=== PATIENT | female | born 1945 | race African-American/Black ===

== ENCOUNTER 2020-10-14 11:55 | Inpatient (IN) | payer MEDICARE ==
[~2020-10-14] VITALS: Ht 175.3 cm; Wt 121.8 kg
[2020-10-14 12:49] VITALS: BP 173/78
[2020-10-14 13:46] LABS: BASO # 0.1 x10^3/uL (0.0-0.2); BASO % 1 % (0-3); EOS # 0.1 x10^3/uL (0.0-0.7); EOS % 2 % (0-3); HEMATOCRIT 38.2 % (36.0-47.0); HEMOGLOBIN 12.5 g/dL (12.0-15.5); LYMPH # 2.5 x10^3/uL (1.0-4.8); LYMPH % 32 % (24-48); MEAN CORPUSCULAR HEMOGLOBIN 31 pg (25-35); MEAN CORPUSCULAR HGB CONC 33 g/dL (31-37); MEAN CORPUSCULAR VOLUME 93 fL (79-100); MONO # 0.8 x10^3/uL (0.0-1.1); MONO % 11 % (0-9); NEUT # 4.3 x10^3uL (1.8-7.7); NEUT % 55 % (31-73); PLATELET COUNT 188 x10^3/uL (140-400); RED BLOOD COUNT 4.11 x10^6/uL (3.50-5.40); RED CELL DISTRIBUTION WIDTH 15.5 % (11.5-14.5); WHITE BLOOD COUNT 7.7 x10^3/uL (4.0-11.0)
[2020-10-14 13:59] LABS: ALBUMIN 2.8 g/dL (3.4-5.0); ALBUMIN/GLOBULIN RATIO 0.7 (1.0-1.7); GFR 65.8; POTASSIUM 3.9 mmol/L (3.5-5.1); TOTAL BILIRUBIN 0.3 mg/dL (0.2-1.0); TOTAL PROTEIN 6.9 g/dL (6.4-8.2)
[2020-10-14 14:42] LABS: CALCIUM 9.5 mg/dL (8.5-10.1)
[2020-10-14] MEDS ORDERED: ALBU2.5V8 IH (15:17)
[2020-10-14] MEDS ORDERED: LISI40TA6 PO (15:17)
[2020-10-14] MEDS ORDERED: DOXA4TAB3 PO (15:17)
[2020-10-14] MEDS ORDERED: AMLO-187 PO (15:17)
[2020-10-14] MEDS ORDERED: ATOR40TA59 PO (15:17)
[2020-10-14] MEDS ORDERED: CARV25TA PO (15:17)
[2020-10-14] MEDS ORDERED: CYCL-331 PO (15:17)
[2020-10-14] MEDS ORDERED: METF500T16 PO (15:17)
--- NOTE | 2020-10-14 15:20 | NUR ---
Nursing Note Admit Pt direct admission from dr. chou's office via wheelchair to room 113. pt states she woke up with left hip pain that is progressively getting worse. was seen tuesday at the office and is continuing to get worse. pt was admitted for pain control and evaluation. pt not sure of home medication, medications obtained from [facility] pharmacy. dr. chou notified for review. pt currently in her room prn pain medication given. pain is 10/10. upon entering pt's room, pt's bed was elevated in the air. pt states it feels good to dangle her legs. pt educated on importance of leaving bed in low position. pt A&Ox4 and states she can move the bed up and down if she wants. pt COVID vaccinated J&J.
[2020-10-14 16:15] VITALS: BP 113/66
[2020-10-14] MEDS ORDERED: ALBUTEROL SULFATE 2.5 MG/3 ML NEBU. IH PRN (17:30)
[2020-10-14 18:22] VITALS: BP 134/76
[2020-10-14] MEDS: CYCLOBENZAPRINE 10 MG TABLET. PO SCH (21:15)
[2020-10-14] MEDS: ATORVASTATIN CALCIUM 20 MG TABLET PO SCH (21:15)
[2020-10-14 23:09] VITALS: BP 158/91
[2020-10-15 05:47] LABS: BILIRUBIN,URINE NEG (NEG); CLARITY,URINE HAZY; COLOR,URINE YELLOW; GLUCOSE,URINE NEG (NEG)
[2020-10-15 05:48] LABS: NITRITE,URINE NEG (NEG); UROBILINOGEN,URINE 0.2 mg/dL (0.2 mg/dL)
[2020-10-15 05:53] LABS: BACTERIA,URINE FEW /HPF (0-FEW); SQUAMOUS EPITHELIAL CELL,UR OCC /LPF
[2020-10-15 06:13] VITALS: BP 153/86
[2020-10-15] MEDS ORDERED: DEXTROSE 50% 25 GM / 50ML DISP.SYRIN. IV PRN (07:15)
[2020-10-15] MEDS: INSULIN LISPRO 300 UNITS/3 ML VIAL. SQ SCH ×3 (08:00→17:00)
--- NOTE | 2020-10-15 08:14 | RAD ---
PQRS Compliance Statement: One or more of the following individualized dose reduction techniques were utilized for this examinat ion: 1. Automated exposure control 2. Adjustment of the mA and/or kV according to patient size 3. Use of iterative reconstruction technique CT PELVIS WO Clinical Indication: Reason: severe pain left hip and unable to bear weight / very painful to lay on left buttock/hip, layed prone on table / Comparison: None. TECHNIQUE: Helical CT imaging of the pelvis is performed without IV contrast. Findings: There is lower lumbar facet hypertrophy. There is minimal left convexity lumbar scoliosis. There is d isc space narrowing and reactive endplate changes of L2/L3. No loss of vertebral body height is ident ified. The sacral iliac joints demonstrate air and there are sclerotic changes along the bilateral iliac bon es, worse on the left. No bone erosion is seen. There is mild arthropathy of the bilateral hips. There is no dislocation. No diastasis of symphysis p ubis. There are old healed fractures of the bilateral inferior pubic rami. No acute pelvic or hip fra cture is identified. There is a fluid-filled supraumbilical hernia measuring 3.2 x 5.2 cm. The rectum is distended with st ool and air. There is no rectal wall thickening. Uterus unremarkable. The urinary bladder is normal. No pelvic free fluid. There is right inguinal subcutaneous fluid density that is well-circumscribed a nd measures up to 3 cm. Fluid could be a seroma or old hematoma. No acute intramuscular hematoma is i dentified. IMPRESSION: No acute pelvic or hip fracture. Electronically signed by: Yaya Trevino MD (10/15/2020 8:12 AM) [id number]
[2020-10-15] MEDS: CYCLOBENZAPRINE 10 MG TABLET. PO SCH ×2 (08:59→20:39)
[2020-10-15] MEDS: amLODIPine BESYLATE 10 MG TABLET PO SCH (08:59)
[2020-10-15] MEDS: metFORMIN 500 MG TABLET PO SCH ×2 (08:59→17:04)
[2020-10-15] MEDS: LISINOPRIL 20 MG TABLET PO SCH (09:00)
[2020-10-15] MEDS: CARVEDILOL 12.5 MG TABLET PO SCH ×2 (09:00→17:06)
[2020-10-15] MEDS: DOXAZOSIN MESYLATE 4 MG TABLET PO SCH (09:01)
[2020-10-15 11:25] VITALS: BP 134/81
[2020-10-15] MEDS ORDERED: IV 1/2 NORMAL SALINE 1,000 ML IV PRN (12:30)
--- NOTE | 2020-10-15 12:57 | RAD ---
EXAMINATION: CT LUMBAR SPINE WO, 10/15/2020 10:50 AM CLINICAL INDICATION: Sciatica, left COMPARISON: MRI lumbar spine 06/29/2023 TECHNIQUE: Helical CT imaging performed of the lumbar spine without the use of intravenous contrast. Sagittal and coronal reformats were obtained. One or more of the following individualized dose reduction techniques were utilized for this examinat ion: 1. Automated exposure control 2. Adjustment of the mA and/or kV according to patient size 3. Use of iterative reconstruction technique. FINDINGS: There 5 nonrib-bearing lumbar vertebral bodies. No acute fracture. Alignment is normal. The re is moderate to severe disc space narrowing at L2-L3 with mild endplate sclerosis and small anterio r osteophytes. Mild disc space narrowing at the remaining levels. T12-L1: No canal or foraminal narrowing. No facet arthrosis. L1-L2: Shallow broad-based disc bulge. No canal or foraminal narrowing. No facet arthrosis. L2-L3: Small disc osteophyte complex. No canal or left foraminal narrowing. Mild right foraminal narr owing. No facet arthrosis. L3-L4: Small broad-based disc bulge and mild facet arthrosis. No canal or foraminal narrowing. Mild r ight facet arthrosis. L4-L5: There is a small broad-based disc bulge and mild facet arthrosis. No canal or foraminal narrow ing. L5-S1: There is a small central disc protrusion superimposed on a broad-based disc bulge. There is so ft tissue fullness in the left neural foramen causing obliteration of fat in the left foramen and mos t likely causing at least mild left foraminal narrowing. This could be due to a left foraminal disc e xtrusion or protrusion. No canal or right foraminal narrowing. IMPRESSION: Moderate to severe degenerative disc disease at L2-L3 and mild degenerative disc disease elsewhere. There is suspected at least mild left foraminal narrowing at L5-S1 with possible left fora layla disc extrusion. Electronically signed by: Lea Puga MD (10/15/2020 12:55 PM) [id number]
[2020-10-15 14:59] VITALS: BP 132/77
[2020-10-15 19:45] VITALS: BP 135/79
[2020-10-15] MEDS: ATORVASTATIN CALCIUM 20 MG TABLET PO SCH (20:39)
[2020-10-15] MEDS ORDERED: LIDOCAINE (700MG/PATCH) PATCH. TD SCH (21:00)
[2020-10-15] MEDS ORDERED: PATCH REMOVAL. MC SCH (21:00)
[2020-10-15 22:30] VITALS: BP 128/77
--- NOTE | 2020-10-15 23:44 | PN ---
SUBJECTIVE: The patient still complains of severe pain 8-9/10 in her left hip area. Blood sugars were brought under better control. CT scan of the pelvis was unremarkable. CT scan of the lumbar spine is still pending and will get those results. The patient also showed to be markedly dehydrated with a specific gravity of 1.030 greater than that. The patient otherwise will continue on IV fluids for now as well as pain medication to get the CT scan of her lumbar spine and make further evaluation on that as indicated. OBJECTIVE: VITAL SIGNS: Otherwise the blood pressure is 150/80, respiratory rate 16, pulse 80, afebrile. GENERAL: The patient is alert and oriented. EXTREMITIES: The patient complains of severe pain in the left flank area, left hip area, some radiation down the leg. The patient cannot lay down and cannot walk, is in severe pain to the point where it limits her mobility. She has been receiving PT, OT by physical therapy, occupational therapy department here to maintain her mobility. IMPRESSION: Intractable pain to the left hip, possible sciatica, dehydration. PLAN: As above. Continue with aggressive physical therapy and make further assessment. ZO DR: Jermaine TID: [id number]
--- NOTE | 2020-10-16 01:31 | NUR ---
PT currently sleeping with head on arms on bedside table. PT has been encouraged multiple times to not lay head on side table and to lay in bed to sleep due to increased chance of harm from being on the table. PT continues to sleep in this manner. Will continue to monitor.
[2020-10-16 06:00] VITALS: BP 144/82
[2020-10-16] MEDS: INSULIN LISPRO 300 UNITS/3 ML VIAL. SQ SCH (07:46)
[2020-10-16] MEDS: CYCLOBENZAPRINE 10 MG TABLET. PO SCH (08:08)
[2020-10-16] MEDS: LISINOPRIL 20 MG TABLET PO SCH (08:08)
[2020-10-16] MEDS: metFORMIN 500 MG TABLET PO SCH (08:08)
[2020-10-16 08:09] VITALS: BP 144/82
[2020-10-16] MEDS: amLODIPine BESYLATE 10 MG TABLET PO SCH (08:09)
[2020-10-16] MEDS: DOXAZOSIN MESYLATE 4 MG TABLET PO SCH (08:09)
[2020-10-16] MEDS: CARVEDILOL 12.5 MG TABLET PO SCH (08:09)
[2020-10-16] MEDS ORDERED: HYDR-2155 PO (08:49)
[2020-10-16] MEDS ORDERED: LIDO700A21 TD (08:49)
[2020-10-16] MEDS ORDERED: MELO15TA23 PO (08:49)
[2020-10-16] MEDS ORDERED: PATCH REMOVAL. MC SCH (09:00)
--- NOTE | 2020-10-16 09:30 | NUR ---
DISCHARGE Pt discharged today by Dr. Rodrigues. Verbalized understanding of discharge instructions and prescriptions. Pain managment follow up information relayed to patient. Daughter escorted pt home. GCS 15, VSS and ambulatory at discharge. Pt wheeled to main entrance. CC, RN
== END 2020-10-16 10:00 | disposition home or self-care (01) | DRG 551 ==
LOC: 1 SOUTH 11:55
PROVIDERS: ADMIT Family Medicine; ATTEND Family Medicine
DX: M54.32 Sciatica, left side (principal); E43 Unspecified severe protein-calorie malnutrition; J96.11 Chronic respiratory failure with hypoxia; E86.0 Dehydration; Z79.899 Other long term (current) drug therapy; I11.0 Hypertensive heart disease with heart failure; I50.9 Heart failure, unspecified; E11.9 Type 2 diabetes mellitus without complications; E78.5 Hyperlipidemia, unspecified; E66.9 Obesity, unspecified; Z68.39 Body mass index [BMI] 39.0-39.9, adult; M16.12 Unilateral primary osteoarthritis, left hip
CPT/HCPCS: 36415; 72131; 72192; 80053; 81001; 82947; 85025; 87086; J3010

== ENCOUNTER 2021-01-24 21:56 | Emergency (ER) | payer MEDICARE ==
[~2021-01-24] VITALS: Ht 175.3 cm; Wt 128.0 kg
[~2021-01-24 21:56] MED LIST: ALBU2.5V8 IH; AMLO-187 PO; ATOR40TA59 PO; CARV25TA PO; CYCL-331 PO; DOXA4TAB3 PO; HYDR-2155 PO; LIDO700A21 TD; LISI40TA6 PO; MELO15TA23 PO; METF500T16 PO
--- NOTE | 2021-01-24 22:01 | PHYS DOC ---
Past History Past Medical History: Anxiety, Arthritis, Diabetes, Hypertension, Sciatica, UTI General Adult HPI: HPI: ".. I think I have a urinary infection.. "..." I seen Dr. Rodrigues office the other day.. and they started me on those antibiotic pills ( Bactrim) . .. but I am not completely better yet..." Patient is a 75 year old female who presents with above hx and complaints dysuria. Advises she was diagnosed with a urinary tract infection and follow-up with Dr. Rodrigues's office. Patient denies any vaginal discharge. Patient denies any vaginal or pubic lesions. Patient denies any trauma. No history of fever or chills. Does admit that she has not been pushing vitamins C drinks or fluids. Has had some diarrhea episodes before on set of antibiotics. Patient does have several days of Bactrim antibiotics left in the bottle. Patient denies any history of immunosuppression.. Gives no history of STDs. No history of recent travel. No history of specific ill contacts. Patient does have a history of sciatica, chronic left hip pain, diabetes, UTI's, hypertension, and dehydration.. No hx of C-dif. Patient normally follows with Dr. Rodrigues for her care. Review of Systems: Review of Systems: Constitutional: Denies fever or chills Eyes: Denies change in visual acuity HENT: Denies nasal congestion or sore throat Respiratory: Denies cough or shortness of breath Cardiovascular: Denies chest pain or edema GI: Denies abdominal pain, nausea, vomiting, bloody stools . Complaints of some episodes of diarrhea - Started prior Bactrim. : Complains of dysuria Musculoskeletal: Denies back pain or joint pain Integument: Denies rash Neurologic: Denies headache, focal weakness or sensory changes Endocrine: Denies polyuria or polydipsia Lymphatic: Denies swollen glands Psychiatric: Denies depression or anxiety Family History: Family History: Noncontributory to presentation. Current Medications: Current Meds: See nursing for home meds Allergies: Allergies: Allergies Coded Allergies Type Severity Reaction Last Updated Verified No Known Drug Allergies 10/14/20 No Physical Exam: PE: Constitutional: Mild to moderate acute distress, non-toxic appearance. [] HENT: Normocephalic, atraumatic, bilateral external ears normal, oropharynx dry, no oral exudates, nose normal. [] Eyes: PERRLA, EOMI, conjunctiva normal, no discharge. [] Neck: Normal range of motion, no tenderness, supple, no stridor. [] Cardiovascular:Heart rate regular rhythm, no murmur, PMI slightly to the left Lungs & Thorax: Bilateral breath sounds "apex on auscultation [] Abdomen: Bowel sounds normal, soft, no tenderness, no masses, no pulsatile masses. Mild suprapubic pubic discomfort. Patient declined pelvic exam at this time. Obese. Mild rebound to the lower pelvic area. Skin: Warm, dry, no erythema, no rash. [] Back: No tenderness, no CVA tenderness. [] Extremities: No tenderness, no cyanosis, no clubbing, ROM intact, no edema. No true psoas sign. Neurologic: Alert and oriented X 3, moves all extremities on request, does have a distal sensory, does have some tenderness along left sciatic nerve, no focal deficits noted. [] Psychologic: Affect anxious, appears to have some memory issues, mood normal. [] EKG: EKG: [] Radiology/Procedures: Radiology/Procedures: [] Heart Score: C/O Chest Pain: N/A Risk Factors: Risk Factors: DM, Current or recent (<one month) smoker, HTN, HLP, family history of CAD, obesity. Risk Scores: Score 0 - 3: 2.5% MACE over next 6 weeks - Discharge Home Score 4 - 6: 20.3% MACE over next 6 weeks - Admit for Clinical Observation Score 7 - 10: 72.7% MACE over next 6 weeks - Early Invasive Strategies Course & Med Decision Making: Course & Med Decision Making Pertinent Labs and Imaging studies reviewed. (See chart for details) Patient did require almost 2 L of LR fluid before urine output. Patient did receive 1 g of Rocephin IV. Urine sent for additional cultures and evaluation. Patient encouraged to push vitamin C drinks and fluids. Patient encouraged to complete her Bactrim prescription. Patient must follow-up cultures. Must ret urn if no improvement. Call for follow-up appointment in Dr. Rodrigues's office for recheck urine after completing Bactrim. Return if any concerns. Pt. produced no stools in ED to evaluated for C-dif. Impression: 1. UTI- Still > 40 WBC on UA dip tonighgt 2. Dehydration 3. Creatinine 1.3 4. Diabetes glucose 140 5. Malnutrition albumin 2.6 6. Hx.Diarrhea episodes- ( Started prior to the antibiotics) [] Dragon Disclaimer: Dragon Disclaimer: This electronic medical record was generated, in whole or in part, using a voice recognition dictation system. Departure Departure: Referrals: NATASHA RODRIGUES MD (PCP) Dragon Disclaimer This chart was dictated in whole or in part using Voice Recognition software in a busy, high-work load, and often noisy Emergency Department environment. It may contain unintended and wholly unrecognized errors or omissions. Dragon Disclaimer This chart was dictated in whole or in part using Voice Recognition software in a busy, high-work load, and often noisy Emergency Department environment. It may contain unintended and wholly unrecognized errors or omissions. Dragon Disclaimer This chart was dictated in whole or in part using Voice Recognition software in a busy, high-work load, and often noisy Emergency Department environment. It may contain unintended and wholly unrecognized errors or omissions. Dragon Disclaimer This chart was dictated in whole or in part using Voice Recognition software in a busy, high-work load, and often noisy Emergency Department environment. It may contain unintended and wholly unrecognized errors or omissions. CRISS VELEZ MD Jan 24, 2021 22:01
[2021-01-24] MEDS ORDERED: PHENAZOPYRIDINE 200 MG TABLET. PO ONE (22:15)
[2021-01-24] MEDS ORDERED: IV RINGERS SOLUTION,LACTATED 1,000 ML IV SCH (23:15)
[2021-01-24] MEDS ORDERED: ONDANSETRON PF 4 MG/2 ML VIAL. IVP ONE (23:15)
[2021-01-24] MEDS ORDERED: FAMOTIDINE 20 MG/2 ML VIAL IVP ONE (23:15)
[2021-01-24] MEDS ORDERED: IV NORMAL SALINE 50ML 50 ML ONE (23:31)
[2021-01-24] MEDS ORDERED: cefTRIAXone SODIUM 1 GM VIAL ONE (23:31)
[2021-01-25 00:07] LABS: CALCIUM 9.6 mg/dL (8.5-10.1); CREATININE 1.3 mg/dL (0.6-1.0); GFR 48.4; POTASSIUM 3.6 mmol/L (3.5-5.1)
[2021-01-25 00:08] LABS: BASO # 0.1 x10^3/uL (0.0-0.2); BASO % 1 % (0-3); EOS # 0.2 x10^3/uL (0.0-0.7); EOS % 2 % (0-3); HEMATOCRIT 38.2 % (36.0-47.0); HEMOGLOBIN 12.3 g/dL (12.0-15.5); LYMPH # 2.6 x10^3/uL (1.0-4.8); LYMPH % 25 % (24-48); MEAN CORPUSCULAR HEMOGLOBIN 30 pg (25-35); MEAN CORPUSCULAR HGB CONC 32 g/dL (31-37); MEAN CORPUSCULAR VOLUME 94 fL (79-100); MONO % 9 % (0-9); NEUT # 6.4 x10^3uL (1.8-7.7); NEUT % 62 % (31-73); PLATELET COUNT 177 x10^3/uL (140-400); RED BLOOD COUNT 4.05 x10^6/uL (3.50-5.40); WHITE BLOOD COUNT 10.3 x10^3/uL (4.0-11.0)
[2021-01-25 00:13] LABS: ALBUMIN 2.6 g/dL (3.4-5.0); DIRECT BILIRUBIN 0.1 mg/dL (0.0-0.2); TOTAL BILIRUBIN 0.2 mg/dL (0.2-1.0); TOTAL PROTEIN 7.3 g/dL (6.4-8.2)
[2021-01-25] MEDS ORDERED: IV RINGERS SOLUTION,LACTATED 1,000 ML IV ONE (01:15)
[2021-01-25 01:26] LABS: BACTERIA,URINE MOD /HPF (0-FEW); BILIRUBIN,URINE NEG (NEG); CLARITY,URINE CLOUDY; COLOR,URINE YELLOW; GLUCOSE,URINE NEG (NEG); NITRITE,URINE NEG (NEG); UROBILINOGEN,URINE 0.2 mg/dL (0.2 mg/dL); WBC,URINE >40 /HPF (0-4)
[2021-01-25 01:27] LABS: SQUAMOUS EPITHELIAL CELL,UR FEW /LPF
[2021-01-25 03:30] VITALS: BP 127/81
== END 2021-01-25 03:45 | disposition home or self-care (01) ==
LOC: ER 21:56
DX: N39.0 Urinary tract infection, site not specified (principal); E86.0 Dehydration; E11.9 Type 2 diabetes mellitus without complications; E46 Unspecified protein-calorie malnutrition; Z68.41 Body mass index [BMI] 40.0-44.9, adult
CPT/HCPCS: 36415; 80048; 80076; 81001; 82550; 83690; 84484; 85025; 87086; 96361; 96365; 96375; 99284; J0696; J2405; J3490; J7120

== ENCOUNTER 2021-02-21 11:43 | Emergency (ER) | payer MEDICARE ==
[~2021-02-21] VITALS: Ht 175.3 cm; Wt 115.3 kg
[2021-02-21 11:43] VITALS: BP 153/102
[~2021-02-21 11:43] MED LIST changes: -CYCL-331 PO; +CYCL10TA19 PO
--- NOTE | 2021-02-21 12:00 | PHYS DOC ---
Past History Past Medical History: Anxiety, Arthritis, Diabetes, Hypertension, Sciatica, UTI Past Surgical History: Other Alcohol Use: None Adult General HPI HPI Patient is a 75-year-old female presenting with the daughter for multiple complaints. Daughter at bedside reports that patient has had complicated recent medical issues. Was diagnosed with an UTI early January by primary care physician and put on Bactrim. Patient subsequently was brought in by daughter several days into antibiotic use January 24 for evaluation as she was concern for ongoing symptoms, memory issues and dehydration. Patient had comprehensive work-up and Rocephin administered and subsequently discharged back home. Patient is brought in by daughter today as daughter is concerned for ongoing UTI as she took a home UTI test that was positive this morning. Daughter is also wanting her evaluated for memory issues that have been going on for +6 months. When discussing presenting symptoms with patient, her only complaint is urinary frequency changes that wax and wane. Denies any other concerning signs or symptoms such as fever, chills, chest pain, shortness of breath, cough, abdominal pain, dysuria, changes in motor or sensory or neuro function. Review of Systems Review of Systems Fourteen body systems of review of systems have been reviewed. See HPI for pertinent positives and negative responses, other sims all other systems are negative, non-pertinent or non-contributory Allergies Allergies Allergies Coded Allergies Type Severity Reaction Last Updated Verified No Known Drug Allergies 10/14/20 No Physical Exam Physical Exam Constitutional: Well developed, well nourished, no acute distress, non-toxic appearance. HENT: Normocephalic, atraumatic, bilateral external ears normal, oropharynx mo ist, no oral exudates, nose normal. Eyes: PERRLA, EOMI, conjunctiva normal, no discharge. Neck: Normal range of motion, no tenderness, supple, no stridor. Cardiovascular: Heart rate regular, sinus rhythm, no murmurs rubs or gallops Lungs & Thorax: Bilateral breath sounds clear to auscultation Abdomen: Bowel sounds normal, soft, no tenderness, no masses, no pulsatile masses. Nonsurgical abdomen, no peritoneal signs Skin: Warm, dry, no erythema, no rash. Back: No tenderness, no CVA tenderness. Extremities: No tenderness, no cyanosis, no clubbing, ROM intact, no edema. Neurologic: Alert and oriented X 3, grossly normal motor & sensory function, no focal deficits noted. Psychologic: Affect normal, judgement normal, mood normal. Current Patient Data Vital Signs Vital Signs Date Time Temp Pulse Resp B/P (MAP) Pulse Ox O2 Delivery O2 Flow Rate FiO2 02/21/21 11:43 97.6 85 153/102 (119) 99 02/21/21 11:43 16 Room Air Vital Signs Date Time Temp Pulse Resp B/P (MAP) Pulse Ox O2 Delivery O2 Flow Rate FiO2 02/21/21 11:43 97.6 85 16 153/102 (119) 99 Room Air Lab Results Laboratory Tests Test 02/21/21 12:30 02/21/21 14:05 White Blood Count 5.4 x10^3/uL Red Blood Count 4.22 x10^6/uL Hemoglobin 12.6 g/dL Hematocrit 38.9 % Mean Corpuscular Volume 92 fL Mean Corpuscular Hemoglobin 30 pg Mean Corpuscular Hemoglobin Concent 32 g/dL Red Cell Distribution Width 15.0 % Platelet Count 191 x10^3/uL Neutrophils (%) (Auto) 45 % Lymphocytes (%) (Auto) 36 % Monocytes (%) (Auto) 13 % Eosinophils (%) (Auto) 4 % Basophils (%) (Auto) 2 % Neutrophils # (Auto) 2.5 x10^3uL Lymphocytes # (Auto) 2.0 x10^3/uL Monocytes # (Auto) 0.7 x10^3/uL Eosinophils # (Auto) 0.2 x10^3/uL Basophils # (Auto) 0.1 x10^3/uL Segmented Neutrophils % 31 % Lymphocytes % 56 % Monocytes % 9 % Eosinophils % 4 % Platelet Estimate Adequate Sodium Level 139 mmol/L Potassium Level 3.9 mmol/L Chloride Level 102 mmol/L Carbon Dioxide Level 29 mmol/L Anion Gap 8 Blood Urea Nitrogen 14 mg/dL Creatinine 0.8 mg/dL Estimated GFR (Cockcroft-Gault) 84.8 BUN/Creatinine Ratio 18 Glucose Level 133 mg/dL Calcium Level 10.0 mg/dL Total Bilirubin 0.3 mg/dL Aspartate Amino Transf (AST/SGOT) 11 U/L Alanine Aminotransferase (ALT/SGPT) 15 U/L Alkaline Phosphatase 89 U/L Troponin I High Sensitivity 17 ng/L Total Protein 7.5 g/dL Albumin 2.9 g/dL Albumin/Globulin Ratio 0.6 Urine Collection Type Clean catch Urine Color Yellow Urine Clarity Clear Urine pH 6.0 Urine Specific [place] 1.020 Urine Protein 100 mg/dl Urine Glucose (UA) Neg mg/dL Urine Ketones (Stick) Neg mg/dL Urine Blood Mod Urine Nitrite Neg Urine Bilirubin Neg Urine Urobilinogen Dipstick 0.2 mg/dL Urine Leukocyte Esterase Neg Urine RBC 6-10 /HPF Urine WBC 0 /HPF Urine Squamous Epithelial Cells Mod /LPF Urine Bacteria 0 /HPF EKG EKG EKG ordered and interpreted by myself at 1210 hrs. is sinus rhythm at 82 bpm, unremarkable intervals, no axis deviation, no acute ischemic findings Radiology/Procedures Radiology/Procedures Examination: CT of the abdomen pelvis without contrast HISTORY: History of hematuria, urinary frequency COMPARISON: None available TECHNIQUE: Axial CT images of the abdomen pelvis are performed without contrast. Coronal and sagittal reformats are performed Exposure: One or more of the following individualized dose reduction techniques were utilized for this examination: 1. Automated exposure control 2. Adjustment of the mA and/or kV according to patient size 3. Use of iterative reconstruction technique FINDINGS: Mild bibasilar lung atelectasis. No evidence of free air identified in the abdomen. Trace pericardial effusion. The evaluation of the solid organs is limited due to lack of IV contrast. The evaluation of bowel is limited due to lack of oral contrast. Small cystic s tructure identified in the left lobe of the liver measuring 1.2 cm likely cyst. The visualized noncontrasted spleen, adrenals grossly appears unremarkable. Cholecystectomy changes. The stomach is mildly distended with visualized pancreas grossly appears u nremarkable. There is 5.6 x 5.3 cm cystic structure identified in the subcutaneous region of the anterior abdominal wall distal superior to the umbilicus likely cyst or sebaceous cyst. The small bowel is nondilated. Feces and gas noted in the colon. The urinary bladder is mildly distended. There is mild inflammatory fat stranding identified about the urinary bladder. Small amount of free fluid identified in the pelvis. Cystic structure identified in the left kidney measures 1.7 cm probably cyst. There is minimal calcification measuring 2 mm identified just along the adjacent to the course of the mid right ureter, best visualized on series 2 image 86 probably adjacent vascular calcification and less likely ureteral calculus. No evidence of hydronephrosis. Moderate degenerative changes lumbar spine. Old fractures bilateral inferior pubic ramus. IMPRESSION: 1. Mild inflammatory fat stranding identified about the urinary bladder could be due to cystitis. Correlate with lab values. 2. There is minimal calcification measuring 2 mm identified just along the adjacent to the course of the mid right ureter, best visualized on series 2 [id number] probably adjacent vascular calcification and less likely ureteral calculus. 3. There is 5.6 x 5.3 cm cystic structure identified in the subcutaneous region of the anterior abdominal wall distal superior to the umbilicus likely cyst or sebaceous cyst. 4. Small amount of free fluid identified in the pelvis, nonspecific. Electronically signed by: Sreekanth Medina MD (02/21/2021 1:11 PM) [id number] Heart Score C/O Chest Pain: No HEART Score for Chest Pain: HEART Score for Chest Pain Response (Comments) Value History Slighlty/Non-Suspicious 0 ECG Normal 0 Age > 65 2 Risk Factors 1 or 2 Risk Factors 1 Troponin < Normal Limit 0 Total 3 Risk Factors: Risk Factors: DM, Current or recent (<one month) smoker, HTN, HLP, family history of CAD, obesity. Risk Scores: Risk Factors: DM, Current or recent (<one month) smoker, HTN, HLP, family history of CAD, obesity. Course & Med Decision Making Course & Med Decision Making ABCs unremarkable Patient's HPI does not add up. Patient did not take outpatient prescribed Bactrim to completion. UA at last visit reviewed and not indicative of UTI. Hematuria has not been addressed. Memory problems have been ongoing for months, I question underlying dementia versus infectious delirium. I reviewed prior work-up with patient and daughter at bedside and joint decision among all to pursue diagnostic work-up in ER setting for presenting complaints that were grossly unremarkable UA noninfectious, will await cultures in a patient who has had numerous antibiotics in the past 8 weeks Memory appears long-term, close PCP follow-up for Mini-Mental state exams and further diagnostic testing No indication for further diagnostic work-up in ER setting, close outpatient follow-up and urology consultation advised. Strict return precautions discussed with patient and daughter and understood prior to ER departure Faheem Disclaimer Faheem Disclaimer This electronic medical record was generated, in whole or in part, using a voice recognition dictation system. Departure Departure: Impression: Primary Impression: Urinary frequency Additional Impressions: Hematuria Memory changes Disposition: HOME / SELF CARE / HOMELESS Condition: STABLE Referrals: NATASHA HOPSON MD (PCP) Additional Instructions: As discussed prior to ER departure, your vitals, physical exam and comprehensive ER work-up were nonconcerning for any emergent or surgical issues You were found to have painless hematuria or blood in the urine with because being a suspect 2 mm lesion in your right ureter. As disclosed, it is recommended you contact your primary care physician to put in a referral for outpatient urology follow-up Your urinalysis today did not show any acute infection; however, we will be culturing this to confirm that there is indeed no ongoing infection given your recent rounds of antibiotics. As discussed above, I would follow-up with urology for your ongoing frequency issues Lastly, regarding your memory, I disclosed I am concerned about this being early stages of dementia. Further testing is required in outpatient setting for which I would discussed with Dr. Hopson. Outpatient specialist consultation might be indicated If any concerning signs or symptoms present prior to outpatient follow-up please do not hesitate to come back for repeat evaluation. It was a pleasure to take care of you and I wish you the best going forward Problem Qualifiers KENNETH TRONCOSO DO Feb 21, 2021 12:00
[2021-02-21 12:47] LABS: BASO # 0.1 x10^3/uL (0.0-0.2); BASO % 2 % (0-3); EOS # 0.2 x10^3/uL (0.0-0.7); EOS % 4 % (0-3); HEMATOCRIT 38.9 % (36.0-47.0); HEMOGLOBIN 12.6 g/dL (12.0-15.5); LYMPH % 36 % (24-48); MEAN CORPUSCULAR HEMOGLOBIN 30 pg (25-35); MEAN CORPUSCULAR HGB CONC 32 g/dL (31-37); MEAN CORPUSCULAR VOLUME 92 fL (79-100); MONO # 0.7 x10^3/uL (0.0-1.1); MONO % 13 % (0-9); NEUT # 2.5 x10^3uL (1.8-7.7); NEUT % 45 % (31-73); PLATELET COUNT 191 x10^3/uL (140-400); RED BLOOD COUNT 4.22 x10^6/uL (3.50-5.40); WHITE BLOOD COUNT 5.4 x10^3/uL (4.0-11.0)
[2021-02-21 12:58] LABS: CREATININE 0.8 mg/dL (0.6-1.0); GFR 84.8; POTASSIUM 3.9 mmol/L (3.5-5.1)
[2021-02-21 13:04] LABS: ALBUMIN 2.9 g/dL (3.4-5.0); ALBUMIN/GLOBULIN RATIO 0.6 (1.0-1.7); TOTAL BILIRUBIN 0.3 mg/dL (0.2-1.0); TOTAL PROTEIN 7.5 g/dL (6.4-8.2)
--- NOTE | 2021-02-21 13:13 | RAD ---
Examination: CT of the abdomen pelvis without contrast HISTORY: History of hematuria, urinary frequency COMPARISON: None available TECHNIQUE: Axial CT images of the abdomen pelvis are performed without contrast. Coronal and sagittal reformats are performed Exposure: One or more of the following individualized dose reduction techniques were utilized for thi s examination: 1. Automated exposure control 2. Adjustment of the mA and/or kV according to patient size 3. Use of iterative reconstruction technique FINDINGS: Mild bibasilar lung atelectasis. No evidence of free air identified in the abdomen. Trace pericardial effusion. The evaluation of the solid organs is limited due to lack of IV contrast. The evaluation of bowel is limited due to lack of oral contrast. Small cystic structure identified in the left lobe of the liver measuring 1.2 cm likely cyst. The visualized noncontrasted spleen, adrenals grossly appears unremark able. Cholecystectomy changes. The stomach is mildly distended with visualized pancreas grossly appears unremarkable. There is 5.6 x 5.3 cm cystic structure identified in the subcutaneous region of the anterior abdominal wall distal superior to the umbilicus likely cyst or sebaceous cyst. The small bowel is nondilated. Feces and gas noted in the colon. The urinary bladder is mildly disten ded. There is mild inflammatory fat stranding identified about the urinary bladder. Small amount of free fluid identified in the pelvis. Cystic structure identified in the left kidney m easures 1.7 cm probably cyst. There is minimal calcification measuring 2 mm identified just along the adjacent to the course of the mid right ureter, best visualized on series 2 image 86 probably adjace nt vascular calcification and less likely ureteral calculus. No evidence of hydronephrosis. Moderate degenerative changes lumbar spine. Old fractures bilateral inferior pubic ramus. IMPRESSION: 1. Mild inflammatory fat stranding identified about the urinary bladder could be due to cystitis. Co rrelate with lab values. 2. There is minimal calcification measuring 2 mm identified just along the adjacent to the course of the mid right ureter, best visualized on series 2 image 86 probably adjacent vascular calcification and less likely ureteral calculus. 3. There is 5.6 x 5.3 cm cystic structure identified in the subcutaneous region of the anterior abdo layla wall distal superior to the umbilicus likely cyst or sebaceous cyst. 4. Small amount of free fluid identified in the pelvis, nonspecific. Electronically signed by: Sreekanth Medina MD (02/21/2021 1:11 PM) [id number]
[2021-02-21 13:20] LABS: % EOS 4 % (0-5); % LYMPHS 56 % (24-48); % MONOS 9 % (0-10); % SEGS 31 % (35-66); PLT ESTIMATE ADEQUATE (ADEQUATE)
--- NOTE | 2021-02-21 14:22 | EKG ---
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
[2021-02-21 14:38] LABS: BILIRUBIN,URINE NEG (NEG); CLARITY,URINE CLEAR; COLOR,URINE YELLOW; GLUCOSE,URINE NEG (NEG); NITRITE,URINE NEG (NEG); UROBILINOGEN,URINE 0.2 mg/dL (0.2 mg/dL)
[2021-02-21 14:39] LABS: BACTERIA,URINE 0 /HPF (0-FEW); SQUAMOUS EPITHELIAL CELL,UR MOD /LPF; WBC,URINE 0 /HPF (0-4)
== END 2021-02-21 14:45 | disposition home or self-care (01) ==
LOC: ER 11:43
DX: R35.0 Frequency of micturition (principal); R31.9 Hematuria, unspecified; R41.3 Other amnesia; F41.9 Anxiety disorder, unspecified; M19.90 Unspecified osteoarthritis, unspecified site; E11.9 Type 2 diabetes mellitus without complications; I10 Essential (primary) hypertension; Z87.440 Personal history of urinary (tract) infections
CPT/HCPCS: 36415; 74176; 80053; 81001; 84484; 85007; 85025; 93005; 99285

== ENCOUNTER 2021-04-25 15:34 | Emergency (ER) | payer MEDICARE ==
[~2021-04-25] VITALS: Ht 175.3 cm; Wt 115.3 kg
--- NOTE | 2021-04-25 15:39 | PHYS DOC ---
Past History Past Medical History: Anxiety, Arthritis, Diabetes, Hypertension, Sciatica, UTI (SALVADOR PARKINSON APRN) Past Surgical History: No Surgical History (SALVADOR PARKINSON APRN) Alcohol Use: None (SALVADOR PARKINSON APRN) General Adult EDM: Chief Complaint: ALTERED MENTAL STATUS HPI: HPI: Patient is a 75-year-old female who presents to the emergency department via EMS for "abnormal behavior" per patient's daughter. Per EMS, the abnormal behavior is an episode of incontinence today. Patient reports that she has a history of frequent UTIs since November and has an appointment to follow-up with urology. She states that she does have a history of incontinence when "she was really sick". Patient denies any fever, chest pain, nausea, vomiting, abdominal pain, dysuria, urinary frequency/urgency, cough, shortness of breath. (SALVADOR PARKINSON APRN) Review of Systems: Review of Systems: Constitutional: negative unless reported in HPI Eyes: negative unless reported in HPI HENT: negative unless reported in HPI Respiratory: negative unless reported in HPI Cardiovascular: negative unless reported in HPI GI: negative unless reported in HPI : negative unless reported in HPI Musculoskeletal: negative unless reported in HPI Integument: negative unless reported in HPI Neurologic: negative unless reported in HPI Endocrine: negative unless reported in HPI Lymphatic: negative unless reported in HPI Psychiatric: negative unless reported in HPI (SALVADOR PARKINSON APRN) Allergies: Allergies: Allergies Coded Allergies Type Severity Reaction Last Updated Verified No Known Drug Allergies 10/14/20 No (SALVADOR PARKINSON APRN) Physical Exam: PE: Constitutional: Well developed, well nourished, no acute distress, non-toxic appearance. [] HENT: Normocephalic, atraumatic, bilateral external ears normal, oropharynx moist, no oral exudates, nose normal. [] Eyes: PERRL, EOMI, conjunctiva normal, no discharge. [] Neck: Normal range of motion, no tenderness, supple, no stridor. [] Cardiovascular:Heart rate regular rhythm, no murmur [] Lungs & Thorax: Bilateral breath sounds clear to auscultation [] Abdomen: Bowel sounds normal, soft, no tenderness, no masses, no pulsatile masses. [] Skin: Warm, dry, no erythema, no rash. [] Back: No tenderness, no CVA tenderness. [] Extremities: No tenderness, no cyanosis, no clubbing, ROM intact, no edema. [] Neurologic: Alert and oriented X 3, normal motor function, normal sensory function, no focal deficits noted. [] Psychologic: Affect normal, judgement normal, mood normal. [] (SALVADOR PARKINSON APRN) Current Patient Data: Labs: Laboratory Tests Test 04/25/21 15:53 04/25/21 17:14 White Blood Count 5.7 x10^3/uL Red Blood Count 4.65 x10^6/uL Hemoglobin 14.2 g/dL Hematocrit 43.2 % Mean Corpuscular Volume 93 fL Mean Corpuscular Hemoglobin 31 pg Mean Corpuscular Hemoglobin Concent 33 g/dL Red Cell Distribution Width 15.3 % Platelet Count 163 x10^3/uL Neutrophils (%) (Auto) 51 % Lymphocytes (%) (Auto) 27 % Monocytes (%) (Auto) 21 % Eosinophils (%) (Auto) 1 % Basophils (%) (Auto) 0 % Neutrophils # (Auto) 2.9 x10^3uL Lymphocytes # (Auto) 1.5 x10^3/uL Monocytes # (Auto) 1.2 x10^3/uL Eosinophils # (Auto) 0.0 x10^3/uL Basophils # (Auto) 0.0 x10^3/uL Sodium Level 139 mmol/L Potassium Level 4.1 mmol/L Chloride Level 102 mmol/L Carbon Dioxide Level 30 mmol/L Anion Gap 7 Blood Urea Nitrogen 10 mg/dL Creatinine 1.0 mg/dL Estimated GFR (Cockcroft-Gault) 65.6 BUN/Creatinine Ratio 10 Glucose Level 115 mg/dL Calcium Level 9.3 mg/dL Total Bilirubin 0.4 mg/dL Aspartate Amino Transf (AST/SGOT) 25 U/L Alanine Aminotransferase (ALT/SGPT) 14 U/L Alkaline Phosphatase 78 U/L Troponin I High Sensitivity 32 ng/L Total Protein 7.6 g/dL Albumin 3.0 g/dL Albumin/Globulin Ratio 0.7 Urine Collection Type Clean catch Urine Color Yellow Urine Clarity Clear Urine pH 7.5 Urine Specific [place] 1.025 Urine Protein 100 mg/dl Urine Glucose (UA) Neg mg/dL Urine Ketones (Stick) Neg mg/dL Urine Blood Mod Urine Nitrite Neg Urine Bilirubin Neg Urine Urobilinogen Dipstick 0.2 mg/dL Urine Leukocyte Esterase Neg Urine RBC 20-40 /HPF Urine WBC 0 /HPF Urine Squamous Epithelial Cells Few /LPF Urine Bacteria 0 /HPF Current Medications Medications (Trade) Dose Ordered Sig/Cesar Route PRN Reason Start Time Stop Time Status Last Admin Dose Admin Sodium Chloride 1,000 ml @ 1,000 mls/hr 1X ONCE IV 04/25/21 15:45 04/25/21 16:44 DC 04/25/21 15:45 (SALVADOR PARKINSON APRN) EKG: EKG: [] (SALVADOR PARKINSON APRN) Radiology/Procedures: Radiology/Procedures: [] (SALVADOR PARKINSON APRN) Heart Score: C/O Chest Pain: No Risk Factors: Risk Factors: DM, Current or recent (<one month) smoker, HTN, HLP, family hi story of CAD, obesity. Risk Scores: Score 0 - 3: 2.5% MACE over next 6 weeks - Discharge Home Score 4 - 6: 20.3% MACE over next 6 weeks - Admit for Clinical Observation Score 7 - 10: 72.7% MACE over next 6 weeks - Early Invasive Strategies (SALVADOR PARKINSON APRN) Course & Med Decision Making: Course & Med Decision Making Pertinent Labs and Imaging studies reviewed. (See chart for details) [] Patient presents to the emergency department for "abnormal behavior" as an episode of incontinence that occurred today. Patient is alert and oriented x4. She has a history of chronic UTIs and has an appointment with urology. Patient reports that she has had an episode of incontinence in the past. Patient denies any urinary symptoms and has no current complaints. Work-up in the ER consisted of blood work, urinalysis. Patient treated with IV fluids. Work-up in the ER was unremarkable. Urinalysis did not show any urinary tract infection. Patient was urged to keep her appointment with urology that she has for her incontinence. I discussed with patient all findings and diagnostic testing as well as the need to follow-up with PCP for further evaluation and treatment or return to the ER if any new or worsening symptoms. Strict return precautions were also discussed at length. Patient voiced understanding and agreement with the plan. Patient is hemodynamically stable at the time of disposition. (SALVADOR PARKINSON APRN) Dragon Disclaimer: Dragon Disclaimer: This electronic medical record was generated, in whole or in part, using a voice recognition dictation system. (SALVADOR PARKINSON APRN) Departure Departure: Impression: Primary Impression: Urinary incontinence Qualified Codes: R32 - Unspecified urinary incontinence Disposition: HOME / SELF CARE / HOMELESS Condition: GOOD Referrals: NATASHA HOPSON MD (PCP) Patient Instructions: Urinary Incontinence-Brief Additional Instructions: You were seen in the emergency department today for incontinence. Your blood work and urine showed no acute findings. Please keep your appointment with urology to follow-up regarding your history of chronic UTIs and incontinence. Return to the emergency department if you develop pain with urination, high fevers refractory to treatment, abdominal pain, severe back pain, intractable nausea or vomiting or any new or worsening concerns. Attending Signature Attending Signature I have reviewed the PA/BUSINESS APPLICATIONS ANALYST's note and plan of care. I was available for consultation as needed during the patient's visit in the emergency department. I agree with the clinical impression, plan, and disposition. (ASHLEE HERNANDEZ DO) SALVADOR PARKINSON APRN Apr 25, 2021 15:39 ASHLEE HERNANDEZ DO Apr 26, 2021 01:26
[2021-04-25] MEDS ORDERED: IV NORMAL SALINE 1,000ML 1,000 ML IV ONE (15:45)
[2021-04-25 16:36] LABS: BASO % 0 % (0-3); EOS % 1 % (0-3); HEMATOCRIT 43.2 % (36.0-47.0); HEMOGLOBIN 14.2 g/dL (12.0-15.5); LYMPH # 1.5 x10^3/uL (1.0-4.8); LYMPH % 27 % (24-48); MEAN CORPUSCULAR HEMOGLOBIN 31 pg (25-35); MEAN CORPUSCULAR HGB CONC 33 g/dL (31-37); MEAN CORPUSCULAR VOLUME 93 fL (79-100); MONO # 1.2 x10^3/uL (0.0-1.1); MONO % 21 % (0-9); NEUT # 2.9 x10^3uL (1.8-7.7); NEUT % 51 % (31-73); PLATELET COUNT 163 x10^3/uL (140-400); RED BLOOD COUNT 4.65 x10^6/uL (3.50-5.40); RED CELL DISTRIBUTION WIDTH 15.3 % (11.5-14.5); WHITE BLOOD COUNT 5.7 x10^3/uL (4.0-11.0)
[2021-04-25 16:38] LABS: CALCIUM 9.3 mg/dL (8.5-10.1); GFR 65.6; POTASSIUM 4.1 mmol/L (3.5-5.1)
[2021-04-25 16:44] LABS: ALBUMIN/GLOBULIN RATIO 0.7 (1.0-1.7); TOTAL BILIRUBIN 0.4 mg/dL (0.2-1.0); TOTAL PROTEIN 7.6 g/dL (6.4-8.2)
--- NOTE | 2021-04-25 17:41 | EKG ---
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
[2021-04-25 17:50] LABS: BACTERIA,URINE 0 /HPF (0-FEW); BILIRUBIN,URINE NEG (NEG); CLARITY,URINE CLEAR; COLOR,URINE YELLOW; GLUCOSE,URINE NEG (NEG); NITRITE,URINE NEG (NEG); RBC,URINE 20-40 /HPF (0-2); SQUAMOUS EPITHELIAL CELL,UR FEW /LPF; UROBILINOGEN,URINE 0.2 mg/dL (0.2 mg/dL); WBC,URINE 0 /HPF (0-4)
[2021-04-25 18:54] VITALS: BP 195/117
== END 2021-04-25 19:22 | disposition home or self-care (01) ==
LOC: ER 15:34
DX: N39.498 Other specified urinary incontinence (principal); F41.9 Anxiety disorder, unspecified; M19.90 Unspecified osteoarthritis, unspecified site; E11.9 Type 2 diabetes mellitus without complications; I10 Essential (primary) hypertension; Z87.440 Personal history of urinary (tract) infections
CPT/HCPCS: 36415; 80053; 81001; 84484; 85025; 93005; 96360; 96361; 99284; J7030

== ENCOUNTER 2021-05-26 09:55 | Inpatient (IN) | payer MEDICARE ==
[~2021-05-26] VITALS: Ht 175.3 cm; Wt 112.9 kg
--- NOTE | 2021-05-26 10:22 | PHYS DOC ---
Past History Past Medical History: Anxiety, Arthritis, Diabetes, Hypertension, Sciatica, UTI (MIGUELITO JAFFE APRN) Past Surgical History: No Surgical History (MIGUELITO JAFFE APRN) Smoking: Non-smoker Alcohol Use: None Drug Use: None (MIGUELITO JAFFE APRN) General Adult EDM: Chief Complaint: COUGH HPI: HPI: Patient is a 75-year-old female that presents today via [facility] w ith a complaint of increased cough. Per EMS report family called 911 because they state that she is not acting like herself, and they wanted her evaluated, patient's only complaint when asked is she has had an increased cough over the last couple of days. When asked about her oxygen use patient states that she wears oxygen at night and sometimes during the day when she is out and about and walking but does not wear it all the time, patient was on 2 L when by nasal cannula when EMS was called, while in the ER we did bring her down to room air and her oxygenation dropped to 85% she was then placed on 2 L per nasal cannula with her oxygenation rising up to 96%. Patient denies chest pain, shortness of air at rest, fever chills, edema in her legs, nausea or vomiting or diarrhea. Patient does state that she does get somewhat short of breath with extended exertion. Patient does have a past medical history of chronic UTIs for which she has been treated here in the emergency department before. (MIGUELITO JAFFE APRN) Review of Systems: Review of Systems: Constitutional: Denies fever or chills Eyes: Denies change in visual acuity HENT: Denies nasal congestion or sore throat Respiratory: Cough denies shortness of breath Cardiovascular: Denies chest pain or edema GI: Denies abdominal pain, nausea, vomiting, bloody stools or diarrhea : Denies dysuria Musculoskeletal: Denies back pain or joint pain Integument: Denies rash Neurologic: Denies headache, focal weakness or sensory changes Endocrine: Denies polyuria or polydipsia Lymphatic: Denies swollen glands Psychiatric: Denies depression or anxiety (MIGUELITO JAFFE APRN) Allergies: Allergies: Allergies Coded Allergies Type Severity Reaction Last Updated Verified No Known Drug Allergies 04/25/21 No (MIGUELITO JAFFE APRN) Physical Exam: PE: Constitutional: Well developed, well nourished, no acute distress, non-toxic appearance. [] HENT: Normocephalic, atraumatic, bilateral external ears normal, oropharynx moist, no oral exudates, nose normal. [] Eyes: PERRLA, EOMI, conjunctiva normal, no discharge. [] Neck: Normal range of motion, no tenderness, supple, no stridor. [] Cardiovascular:Heart rate regular rhythm, no murmur [] Lungs & Thorax: Bilateral breath sounds diminished breath sounds, with a nonproductive cough Abdomen: Bowel sounds normal, soft, no tenderness, no masses, no pulsatile masses. [] Skin: Warm, dry, no erythema, no rash. [] Back: No tenderness, no CVA tenderness. [] Extremities: No tenderness, no cyanosis, no clubbing, ROM intact, trace edema, pedal pulses are 2+, radial pulses 2+ Neurologic: Alert and oriented X 3, normal motor function, normal sensory function, no focal deficits noted. [] Psychologic: Affect normal, judgement normal, mood normal. [] (MIGUELITO JAFFE APRN) Current Patient Data: Labs: Laboratory Tests Test 05/26/21 10:25 05/26/21 12:12 White Blood Count 9.3 x10^3/uL Red Blood Count 3.96 x10^6/uL Hemoglobin 11.8 g/dL Hematocrit 36.4 % Mean Corpuscular Volume 92 fL Mean Corpuscular Hemoglobin 30 pg Mean Corpuscular Hemoglobin Concent 32 g/dL Red Cell Distribution Width 15.5 % Platelet Count 170 x10^3/uL Neutrophils (%) (Auto) 66 % Lymphocytes (%) (Auto) 19 % Monocytes (%) (Auto) 13 % Eosinophils (%) (Auto) 1 % Basophils (%) (Auto) 0 % Neutrophils # (Auto) 6.2 x10^3uL Lymphocytes # (Auto) 1.8 x10^3/uL Monocytes # (Auto) 1.3 x10^3/uL Eosinophils # (Auto) 0.1 x10^3/uL Basophils # (Auto) 0.0 x10^3/uL D-Dimer (Gwendolyn) 9.73 mg/L Sodium Level 141 mmol/L Potassium Level 3.2 mmol/L Chloride Level 105 mmol/L Carbon Dioxide Level 27 mmol/L Anion Gap 9 Blood Urea Nitrogen 17 mg/dL Creatinine 0.9 mg/dL Estimated GFR (Cockcroft-Gault) 74.1 BUN/Creatinine Ratio 19 Glucose Level 147 mg/dL Calcium Level 8.8 mg/dL Total Bilirubin 0.5 mg/dL Aspartate Amino Transf (AST/SGOT) 18 U/L Alanine Aminotransferase (ALT/SGPT) 19 U/L Alkaline Phosphatase 92 U/L Troponin I High Sensitivity 19 ng/L DH-Uwa-A-Type Natriuretic Peptide 543 pg/mL Total Protein 7.1 g/dL Albumin 2.4 g/dL Albumin/Globulin Ratio 0.5 Influenza Type A (Rapid) Negative Influenza Type B (Rapid) Negative SARS-CoV-2 Antigen (Rapid) Negative Urine Collection Type Unknown Urine Color Yellow Urine Clarity Turbid Urine pH 6.0 Urine Specific [place] >=1.030 Urine Protein 100 mg/dl Urine Glucose (UA) Neg mg/dL Urine Ketones (Stick) Neg mg/dL Urine Blood Mod Urine Nitrite Pos Urine Bilirubin Neg Urine Urobilinogen Dipstick 1.0 mg/dL Urine Leukocyte Esterase Mod Urine RBC 3-5 /HPF Urine WBC Tntc /HPF Urine Squamous Epithelial Cells None /LPF Urine Bacteria Many /HPF Current Medications Medications (Trade) Dose Ordered Sig/Cesar Route PRN Reason Start Time Stop Time Status Last Admin Dose Admin Iohexol (Omnipaque 350 Mg/ml) 100 ml 1X ONCE IV 05/26/21 12:00 05/26/21 12:01 DC 05/26/21 11:54 Info (Do NOT chart on this entry -- for MONITORING) 1 each PRN DAILY PRN MC SEE COMMENTS 05/26/21 12:00 05/28/21 11:59 Vital Signs: Vital Signs Date Time Temp Pulse Resp B/P (MAP) Pulse Ox O2 Delivery O2 Flow Rate FiO2 05/26/21 09:59 98.3 80 18 134/69 (90) 96 Nasal Cannula 2.0 (MIGUELITO JAFFE APRN) EKG: EKG: EKG done at [address] Smith at 1019 shows sinus rhythm at a rate of 76 with a NE interval of 166 ms with a QTC of 441 no STEMI [] (MIGUELITO JAFFE APRN) Radiology/Procedures: Radiology/Procedures: REASON: change in mental status PROCEDURE: CHEST AP ONLY EXAM: Chest, single view. HISTORY: Mental status changes. COMPARISON: None. FINDINGS: A frontal view of the chest is obtained. There is diffuse lower lobe predominant interstitial infiltrate with suspected small pleural effusions. There is cardiomegaly. There is no pneumothorax. IMPRESSION: 1. Diffuse lower lobe predominant interstitial infiltrate with suspected small pleural effusions. 2. Cardiomegaly. Electronically signed by: Phuong Bolanos MD (05/26/2021 10:38 AM) [id number][] REASON: cough, elevated d-dimer PROCEDURE: CT ANGIOGRAPHY CHEST Examination: CT angiography chest with IV contrast HISTORY: History of cough, elevated d-dimer COMPARISON: None available TECHNIQUE: Axial CT angiographic images of chest were performed with IV contrast. Coronal and sagittal 3-D MIP reformats are performed. Exposure: One or more of the following individualized dose reduction techniques were utilized for this examination: 1. Automated exposure control 2. Adjustment of the mA and/or kV according to patient size 3. Use of iterative reconstruction technique FINDINGS: The visualized thyroid gland grossly appears unremarkable. Central airways are patent. Mild cardiomegaly. Coronary artery calcifications identified. The caliber of the aorta grossly appears unremarkable. Multiple filling defects identified in the right and left main pulmonary arteries extending into the ri ght upper lobe, right middle lobe, right lower lobe, left upper lobe and left lower lobe pulmonary arterial branches likely multiple pulmonary emboli. Small pericardial effusion identified. Mild bibasilar lung airspace opacities likely atelectasis or infiltrates. Trace bilateral pleural effusions Linear atelectasis left lingula. Extensive identified in the left lower liver measuring 1 cm probably cyst similar to prior exam. Mild degenerative changes thoracic spine. IMPRESSION: 1. Multiple filling defects identified in the right and left main pulmonary arteries extending into the right upper lobe, right middle lobe, right lower lobe, left upper lobe and left lower lobe pulmonary arterial branches likely multiple extensive pulmonary emboli. 2. Small pericardial effusion. 3. Mild bibasilar lung airspace opacities likely atelectasis or infiltrates. Trace bilateral pleural effusions. FOR INTERNAL CODING PURPOSES Critical result: Findings discussed with MIGUELITO JAFFE APRN at 05/26/2021 12:19 PM. RESULT CODE: (C) (MIGUELITO JAFFE APRN) Heart Score: C/O Chest Pain: N/A Risk Factors: Risk Factors: DM, Current or recent (<one month) smoker, HTN, HLP, family history of CAD, obesity. Risk Scores: Score 0 - 3: 2.5% MACE over next 6 weeks - Discharge Home Score 4 - 6: 20.3% MACE over next 6 weeks - Admit for Clinical Observation Score 7 - 10: 72.7% MACE over next 6 weeks - Early Invasive Strategies (MIGUELITO JAFFE APRN) Course & Med Decision Making: Course & Med Decision Making Pertinent Labs and Imaging studies reviewed. (See chart for details) 1230 reviewed radiological and laboratory results with Dr. Marie did inform him that patient has a large amount of pulmonary emboli in bilateral lungs, he is agreeable to admitting patient here to [facility] with a heparin drip, I will also order a venous Doppler of bilateral legs to rule out DVTs we will also order ceftriaxone for urinary tract infection. I did speak to patient and family member and informed him of the plan of care, they are agreeable to admitting and for patient management of her pulmonary emboli. (MIGUELITO JAFFE APRN) Dragon Disclaimer: Dragon Disclaimer: This electronic medical record was generated, in whole or in part, using a voice recognition dictation system. (MIGUELITO JAFFE APRN) Attending Co-Sign The patient was seen and interviewed as well as examined at the bedside. The chart was reviewed. The case was discussed. Agree with the plan of care. (DEJAN SMITH DO) Departure Departure: Impression: Primary Impression: Pulmonary embolism Qualified Codes: I26.94 - Multiple subsegmental pulmonary emboli without acute cor pulmonale Additional Impression: Urinary tract infection Qualified Codes: N30.01 - Acute cystitis with hematuria Disposition: ADMITTED INPATIENT Admitting Physician: Natasha Hopson (MIGUELITO JAFFE APRN) Condition: GUARDED Referrals: NATASHA HOPSON MD (PCP) MIGUELITO JAFFE APRN May 26, 2021 10:22 DEJAN SMITH DO May 29, 2021 08:48
--- NOTE | 2021-05-26 10:29 | EKG ---
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
--- NOTE | 2021-05-26 10:40 | RAD ---
EXAM: Chest, single view. HISTORY: Mental status changes. COMPARISON: None. FINDINGS: A frontal view of the chest is obtained. There is diffuse lower lobe predominant interstiti al infiltrate with suspected small pleural effusions. There is cardiomegaly. There is no pneumothorax . IMPRESSION: 1. Diffuse lower lobe predominant interstitial infiltrate with suspected small pleural effusions. 2. Cardiomegaly. Electronically signed by: Phuong Bolanos MD (05/26/2021 10:38 AM) [id number]
[2021-05-26 10:50] LABS: BASO % 0 % (0-3); EOS # 0.1 x10^3/uL (0.0-0.7); EOS % 1 % (0-3); HEMATOCRIT 36.4 % (36.0-47.0); HEMOGLOBIN 11.8 g/dL (12.0-15.5); LYMPH # 1.8 x10^3/uL (1.0-4.8); LYMPH % 19 % (24-48); MEAN CORPUSCULAR HEMOGLOBIN 30 pg (25-35); MEAN CORPUSCULAR HGB CONC 32 g/dL (31-37); MEAN CORPUSCULAR VOLUME 92 fL (79-100); MONO # 1.3 x10^3/uL (0.0-1.1); MONO % 13 % (0-9); NEUT # 6.2 x10^3uL (1.8-7.7); NEUT % 66 % (31-73); PLATELET COUNT 170 x10^3/uL (140-400); RED BLOOD COUNT 3.96 x10^6/uL (3.50-5.40); RED CELL DISTRIBUTION WIDTH 15.5 % (11.5-14.5); WHITE BLOOD COUNT 9.3 x10^3/uL (4.0-11.0)
[2021-05-26 10:51] LABS: CALCIUM 8.8 mg/dL (8.5-10.1); CREATININE 0.9 mg/dL (0.6-1.0); GFR 74.1; POTASSIUM 3.2 mmol/L (3.5-5.1)
[2021-05-26 10:56] LABS: INFLUENZA A PATIENT NEGATIVE (NEGATIVE); INFLUENZA B PATIENT NEGATIVE (NEGATIVE)
[2021-05-26 11:12] LABS: ALBUMIN 2.4 g/dL (3.4-5.0); ALBUMIN/GLOBULIN RATIO 0.5 (1.0-1.7); TOTAL BILIRUBIN 0.5 mg/dL (0.2-1.0); TOTAL PROTEIN 7.1 g/dL (6.4-8.2)
[2021-05-26] MEDS ORDERED: CONTRAST GIVEN. MC PRN (12:00)
[2021-05-26] MEDS ORDERED: IOHEXOL 350 MG/ML 100 ML VIAL. IV ONE (12:00)
--- NOTE | 2021-05-26 12:24 | RAD ---
Examination: CT angiography chest with IV contrast HISTORY: History of cough, elevated d-dimer COMPARISON: None available TECHNIQUE: Axial CT angiographic images of chest were performed with IV contrast. Coronal and sagitta l 3-D MIP reformats are performed. Exposure: One or more of the following individualized dose reduction techniques were utilized for thi s examination: 1. Automated exposure control 2. Adjustment of the mA and/or kV according to patient size 3. Use of iterative reconstruction technique FINDINGS: The visualized thyroid gland grossly appears unremarkable. Central airways are patent. Mild cardiomeg zhang. Coronary artery calcifications identified. The caliber of the aorta grossly appears unremarkable . Multiple filling defects identified in the right and left main pulmonary arteries extending into th e right upper lobe, right middle lobe, right lower lobe, left upper lobe and left lower lobe pulmonar y arterial branches likely multiple pulmonary emboli. Small pericardial effusion identified. Mild bibasilar lung airspace opacities likely atelectasis or infiltrates. Trace bilateral pleural eff usions Linear atelectasis left lingula. Extensive identified in the left lower liver measuring 1 cm probably cyst similar to prior exam. Mild degenerative changes thoracic spine. IMPRESSION: 1. Multiple filling defects identified in the right and left main pulmonary arteries extending into the right upper lobe, right middle lobe, right lower lobe, left upper lobe and left lower lobe pulmon siri arterial branches likely multiple extensive pulmonary emboli. 2. Small pericardial effusion. 3. Mild bibasilar lung airspace opacities likely atelectasis or infiltrates. Trace bilateral pleural effusions. FOR INTERNAL CODING PURPOSES Critical result: Findings discussed with MIGUELITO JAFFE APRN at 05/26/2021 12:19 PM. RESULT CODE: (C) Electronically signed by: Sreekanth Medina MD (05/26/2021 12:22 PM) [id number]
[2021-05-26 12:29] LABS: CLARITY,URINE TURBID; COLOR,URINE YELLOW; GLUCOSE,URINE NEG (NEG); NITRITE,URINE POS (NEG)
[2021-05-26] MEDS ORDERED: HEPARIN for IV BOLUS 10,000 UNIT/10 ML VIAL. IV ONE (12:30)
[2021-05-26] MEDS ORDERED: HEPARIN for IV BOLUS 10,000 UNIT/10 ML VIAL. IV PRN ×3 (12:30)
[2021-05-26 12:35] LABS: BACTERIA,URINE MANY /HPF (0-FEW); WBC,URINE TNTC /HPF (0-4)
[2021-05-26] MEDS ORDERED: cefTRIAXone SODIUM 1 GM VIAL ONE (12:45)
[2021-05-26] MEDS ORDERED: IV NORMAL SALINE 50ML 50 ML ONE (12:45)
[2021-05-26] MEDS: HEPARIN 25,000UTS/250ML PREMIX 250 ML IV PRN (13:29)
--- NOTE | 2021-05-26 13:34 | RAD ---
INDICATION: Reason: +PE / Spl. Instructions: / History: . Evaluation for thrombus load COMPARISON: None. TECHNIQUE: Grayscale, color and doppler ultrasound images were obtained of the bilateral lower extrem ity venous vasculature. RIGHT: No thrombus identified in the common femoral vein, femoral vein, popliteal vein. LEFT: No thrombus identified in the common femoral vein, femoral vein, popliteal vein. Calf veins not well seen secondary to overlying structures obscuring. IMPRESSION: * No thrombus identified in deep venous system of bilateral lower extremities. Electronically signed by: Elkin Posadas MD (05/26/2021 1:31 PM) [id number]
[2021-05-26 18:14] VITALS: BP 138/72
[2021-05-26] MEDS ORDERED: MIRA25TA PO (18:24)
[2021-05-26] MEDS ORDERED: ALLO300T PO (18:24)
[2021-05-26] MEDS ORDERED: HYDROcodone/APAP 5/325MG 1 TAB TABLET PO PRN (18:30)
[2021-05-26] MEDS ORDERED: ALBUTEROL SULFATE 2.5 MG/3 ML NEBU. IH PRN (18:30)
[2021-05-26] MEDS: CYCLOBENZAPRINE 10 MG TABLET. PO SCH (22:16)
[2021-05-26 23:18] VITALS: BP 129/72
[2021-05-27] MEDS: HEPARIN 25,000UTS/250ML PREMIX 250 ML IV PRN ×2 (03:20→17:42)
[2021-05-27 05:20] VITALS: BP 128/75
[2021-05-27] MEDS: CYCLOBENZAPRINE 10 MG TABLET. PO SCH ×2 (08:54→20:41)
[2021-05-27] MEDS: MIRABEGRON 25 MG TAB.ER.24H PO SCH (08:54)
[2021-05-27] MEDS: ALLOPURINOL 300 MG TABLET. PO SCH (08:54)
[2021-05-27] MEDS: ATORVASTATIN CALCIUM 20 MG TABLET PO SCH (08:55)
[2021-05-27] MEDS: DOXAZOSIN MESYLATE 4 MG TABLET PO SCH (08:55)
[2021-05-27] MEDS: amLODIPine BESYLATE 10 MG TABLET PO SCH (08:57)
[2021-05-27] MEDS: LISINOPRIL 20 MG TABLET PO SCH (08:58)
[2021-05-27] MEDS: CARVEDILOL 12.5 MG TABLET PO SCH ×2 (08:58→17:29)
[2021-05-27 11:14] VITALS: BP 141/84
--- NOTE | 2021-05-27 14:56 | RAD ---
EXAM: Abdomen and pelvis CT without intravenous contrast. HISTORY: Pain. Pulmonary embolism. TECHNIQUE: Computed tomographic images of the abdomen and pelvis were obtained without contrast. Mult iplanar reformatting was performed. *One or more of the following individualized dose reduction techniques were utilized for this examina tion: 1. Automated exposure control. 2. Adjustment of the mA and/or kV according to patient size. 3. Use of iterative reconstruction technique. COMPARISON: CT angiogram of the chest dated 05/26/2021. FINDINGS: Evaluation of the lower thorax demonstrates small bilateral pleural effusions. There is a m oderate pericardial effusion. There is cardiomegaly. There is coronary artery calcification. There ar e calcified granulomas. There is multifocal groundglass opacity within the left upper and lower lobes likely due to interstitial infiltrate. There is also suspected right basilar infiltrate or atelectas is. There is a small cyst within the left hepatic lobe. The left hepatic lobe is prominent in size. The g allbladder is surgically absent. The pancreas, spleen and adrenal glands are unremarkable. There is a small simple cyst within the left kidney. There is no hydronephrosis. There is moderate colonic stool. There is no evidence of bowel obstruction. The bladder is distended with contrast. The uterus is unremarkable. There is a suspected small right ovarian cyst. There is fl uid within the 5.0 cm supraumbilical hernia. There is degenerative change involving the cervical spin e, primarily at L2-L3. There is no acute or suspicious osseous finding. IMPRESSION: 1. Small bilateral pleural effusions with left and possibly right lung multifocal infiltrate. Please refer to the chest CT one day prior for additional thoracic findings. 2. Moderate colonic stool. 3. Distended urinary bladder. 4. Fluid filled 5.0 cm superior umbilical hernia. 5. Small hepatic and left renal cysts. Follow-up is not routinely performed for simple cysts. 6. Stable suspected small right ovarian cyst or follicle. Given the postmenopausal status the patient , nonemergent pelvic sonography can be performed to confirm benignity. Electronically signed by: Phuong Bolanos MD (05/27/2021 2:53 PM) [id number]
[2021-05-27 15:16] VITALS: BP 110/72
[2021-05-27 19:53] VITALS: BP 123/69
--- NOTE | 2021-05-27 20:16 | HP ---
DATE OF SERVICE: 05/27/2021 ADMIT DATE: 05/26/2021 HISTORY OF PRESENT ILLNESS: The patient is a 75-year-old female came in through the Emergency Room. The patient was brought in via EMS because of increased shortness of breath. The patient at that time was noted that she has a severe cough for the last few days prior to admission. Her oxygen saturation did show acute respiratory failure with a rate down in the 85% and required 2 liters to bring it up over 90. The patient denied any chest pain; however, she did have shortness of breath and the hacking cough that was continued. It is noted she had for several days prior to admission. A thorough workup in the Emergency Room showed the patient had multiple pulmonary emboli, cause of which was not immediately undertaken, but certainly was placed on a heparin drip and further evaluation would be definitely indicated. The patient was admitted for multiple pulmonary emboli. PAST MEDICAL HISTORY: Congestive heart failure, hypertension, respiratory disorders, COPD, pulmonary emboli, gastrointestinal disorders, on 2 liters at bedtime, abdominal surgery, cholecystectomy, urinary tract infections, urine incontinence and degenerative arthritis. ALLERGIES: No known allergies. HOME MEDICATIONS: Include that of albuterol, cyclobenzaprine, atorvastatin 40, doxazosin 4 mg, carvedilol 25, amlodipine 10, lisinopril 40, meloxicam 15, hydrocodone, metformin, Myrbetriq 25, and allopurinol 300. FAMILY HISTORY: Noncontributory. SOCIAL HISTORY: The patient had a distant history of smoking but nothing recently. No hard drugs or any significant alcohol intake. REVIEW OF SYSTEMS: The patient otherwise had significant problems with arthritis, but other than that, the patient was unremarkable. She denied nausea, vomiting, melena. She has some hematemesis within her review of systems. She denies chest pain, but did have that cough and some shortness of breath with exertion. PHYSICAL EXAMINATION: GENERAL: This is a pleasant -B[place] female, in moderate distress. The patient noted was approximately 85% when she rolled into the ER, placed on 2 liters, stayed in the low 90s. VITAL SIGNS: Blood pressure 130/70, respiratory rate 18, pulse 80. She is afebrile. HEENT: The patient's head was atraumatic, normocephalic. Eyes: PERRLA without jaundice. The mouth and throat were normal. NECK: Supple without JVD, carotid or thyroidmegaly. LUNGS: Diminished throughout, poor movement of air. CARDIOVASCULAR: Regular sinus rhythm, S1, S2, without murmur, rub, thrill, or extra heart sounds. ABDOMEN: Soft, nontender, no rebound or guarding. Positive bowel sounds, no hepatosplenomegaly. EXTREMITIES: Without clubbing, cyanosis, or edema. Negative Homans sign. Pulses noted distally. NEUROLOGIC: Her speech was fluent, spontaneous, appropriate. Cranial nerves II-XII are all within range. DIAGNOSTIC STUDIES: The significance was of the CTA demonstrated multiple filling defects identified both in the right and left main pulmonary arteries extending into the right upper, right middle and right lower lobe, left upper lobe, left lower pulmonary artery branches, likely multiple extensive pulmonary artery with small pericardial effusion, mild bibasilar lung space atelectasis was noted. The patient had Dopplers of her legs and the venous Dopplers were negative for any sign of clot. The patient had no previous history of blood dyscrasias, which will be worked up as an outpatient. Although chest x-ray did show the possibility of an infiltrative process and should be placed on IV antibiotic therapy for that. LABORATORY DATA: Otherwise, her labs were a significant white count was 9, hemoglobin 11 and hematocrit 36. Of course the coag was spontaneous at 9.73. Her INR was good at 1.1 and PTT of 113. The patient's chemistries demonstrated 141, 3.2, BUN and creatinine 17 and 0.9, blood sugar 147, albumin 2.4. BNP of 547. She was COVID negative through and through and the UA did show too numerous to count white blood cells and culture is pending on that, of which again antibiotic therapy should cover both for her urinary tract infection and/or pneumonia. IMPRESSION: Multiple bilateral lobe pulmonary emboli; right and left urinary tract infection, organism unknown; pneumonia of unspecified etiology; acute respiratory failure secondary to pulmonary emboli; elevated D-dimer; hypokalemia; severe protein malnutrition. Continue to monitor the patient carefully. She is on a heparin drip and further workup of her bloody dyscrasias will be undertaken. LATA/JONI DR: RENETTA/robin TID: [id number]
[2021-05-27 23:20] VITALS: BP 120/77
[2021-05-28 06:07] VITALS: BP 133/80
[2021-05-28 06:22] LABS: HEMATOCRIT 34.9 % (36.0-47.0); HEMOGLOBIN 11.3 g/dL (12.0-15.5); RED BLOOD COUNT 3.77 x10^6/uL (3.50-5.40); RED CELL DISTRIBUTION WIDTH 15.8 % (11.5-14.5)
[2021-05-28] MEDS: CARVEDILOL 12.5 MG TABLET PO SCH ×2 (08:30→17:33)
[2021-05-28] MEDS: LISINOPRIL 20 MG TABLET PO SCH (08:31)
[2021-05-28] MEDS: MIRABEGRON 25 MG TAB.ER.24H PO SCH (08:31)
[2021-05-28] MEDS: amLODIPine BESYLATE 10 MG TABLET PO SCH (08:31)
[2021-05-28] MEDS: DOXAZOSIN MESYLATE 4 MG TABLET PO SCH (08:32)
[2021-05-28] MEDS: CYCLOBENZAPRINE 10 MG TABLET. PO SCH ×2 (08:32→20:19)
[2021-05-28] MEDS: ALLOPURINOL 300 MG TABLET. PO SCH (08:32)
[2021-05-28] MEDS: ATORVASTATIN CALCIUM 20 MG TABLET PO SCH (08:32)
[2021-05-28 11:58] VITALS: BP 124/71
[2021-05-28 15:53] VITALS: BP 129/67
[2021-05-28] MEDS: metFORMIN 500 MG TABLET PO SCH (17:34)
[2021-05-28 20:41] VITALS: BP 151/81
--- NOTE | 2021-05-28 23:52 | PN ---
SUBJECTIVE: A 75-year-old female with recurrent problems with pulmonary emboli. The patient continues on IV heparin and will be switched over to oral anticoagulation probably in the next 24 hours. OBJECTIVE: VITAL SIGNS: The patient's blood pressure 150/81, respiratory rate 18 and pulse 92, but she still requires oxygen 3 liters only at 92%. GENERAL: The patient still shows signs of the effect of these multiple pulmonary emboli on either side of her lung. She also shows a right lung multifocal infiltrate as well as other issues going on with a pleural effusion as well. The patient, however, says she is making fairly good progress and will continue to be monitored carefully on these multiple factors. She may be put on an antibiotic for possibility of a possible septic type process of the emboli. Her Venous Dopplers were negative. The patient is still having trouble breathing. The patient's vital signs were noted above and the patient's lungs were basically clear, although diminished. The patient is also receiving IV heparin and will receive also breathing treatments on a regular basis to see if that does not help promote better lungs hygiene otherwise. CARDIOVASCULAR: Regular sinus rhythm. ABDOMEN: Soft, nontender. The patient also has some mild constipation, seems to be doing relatively well. The patient offered to receive physical and occupational therapy and make further evaluation on numerous medical issues as indicated. IMPRESSION: Bilateral lung pulmonary emboli, urinary tract infection and pneumonia of unspecified etiology, acute respiratory failure secondary to pulmonary emboli, elevated D-dimer, hypokalemia, severe protein malnutrition and generalized weakness as noted. HOMER DR: Jermaine TID: [id number]
[2021-05-29 00:07] VITALS: BP 137/74
[2021-05-29 06:09] VITALS: BP 144/78
[2021-05-29 06:14] LABS: CALCIUM 9.3 mg/dL (8.5-10.1); GFR 65.6; POTASSIUM 3.6 mmol/L (3.5-5.1)
[2021-05-29] MEDS ORDERED: IPRATRPIUM/ALBUTEROL 0.5/2.5MG 3 ML NEBU. NEB SCH (08:00)
[2021-05-29] MEDS: CYCLOBENZAPRINE 10 MG TABLET. PO SCH (08:17)
[2021-05-29] MEDS: metFORMIN 500 MG TABLET PO SCH (08:17)
[2021-05-29] MEDS: ALLOPURINOL 300 MG TABLET. PO SCH (08:18)
[2021-05-29] MEDS: ATORVASTATIN CALCIUM 20 MG TABLET PO SCH (08:18)
[2021-05-29] MEDS: amLODIPine BESYLATE 10 MG TABLET PO SCH (08:18)
[2021-05-29] MEDS: MIRABEGRON 25 MG TAB.ER.24H PO SCH (08:18)
[2021-05-29] MEDS: CARVEDILOL 12.5 MG TABLET PO SCH (08:18)
[2021-05-29 08:19] VITALS: BP 144/78
[2021-05-29] MEDS: LISINOPRIL 20 MG TABLET PO SCH (08:19)
[2021-05-29] MEDS: DOXAZOSIN MESYLATE 4 MG TABLET PO SCH (08:19)
[2021-05-29] MEDS ORDERED: CEFDINIR 300 MG CAPSULE PO SCH (09:00)
[2021-05-29] MEDS ORDERED: APIX5TAB3 PO (09:38)
[2021-05-29] MEDS ORDERED: IPRA3AMP29 NEB (09:38)
[2021-05-29] MEDS ORDERED: CEFD300C PO (09:38)
[2021-05-29] MEDS ORDERED: APIXABAN 5 MG TABLET. PO ONE (10:30)
--- NOTE | 2021-05-29 12:16 | DS ---
HOSPITAL COURSE: A 75-year-old female came in through the Emergency Room with increased shortness of breath. She was brought in via EMS. The patient then had a cough. The patient's oxygen saturation was down to 85%. She was in acute respiratory failure, required additional oxygen to bring it up over 90%. Workup through the Emergency Room demonstrated bilateral pulmonary emboli as noted per CTA, both the right upper, right middle, right lower, left upper, and left lower lobes, so all 5 lobes were filled with multiple extensive pulmonary emboli per CTA. The patient also was noted to have mild pleural effusion as well as that of an infiltrative process. The patient was admitted, placed on IV heparin. She was also placed on IV antibiotic therapy. She was also found to have a urinary tract infection of E. coli and a pneumonic process, for which she received IV antibiotic therapy as well as respiratory therapy treatments of DuoNeb. The patient made stable progress. She will continue on oxygen as an outpatient. Her potassium was adjusted. FINAL DIAGNOSES: Include multiple lobe pulmonary emboli, source unknown; pneumonia, community-acquired; acute respiratory failure, hypokalemia, hypoalbuminemia, acute on top of chronic diastolic heart failure, negative COVID-19, severe protein malnutrition, generalized weakness, failure to thrive. The patient will be discharged to home. See [facility]AD. Continue with PT, OT as an outpatient and home health as an outpatient. The patient still requires oxygen at the time of discharge, blood pressure down to 140/78. She is on 3 liters at 94%, room air, afebrile. RENETTA/DEREK/STARR DR: Jermaine TID: [id number]
== END 2021-05-29 12:30 | disposition home health service (06) | DRG 175 ==
LOC: ER 09:55 → ER HOLD 12:29 → 1 SOUTH 14:17
PROVIDERS: ADMIT Family Medicine; ATTEND Family Medicine
DX: I26.94 Multiple subsegmental thrombotic pulmonary emboli without acute cor pulmonale (principal); J18.9 Pneumonia, unspecified organism; J96.00 Acute respiratory failure, unspecified whether with hypoxia or hypercapnia; E43 Unspecified severe protein-calorie malnutrition; I50.33 Acute on chronic diastolic (congestive) heart failure; I31.3 Pericardial effusion (noninflammatory); J44.0 Chronic obstructive pulmonary disease with (acute) lower respiratory infection; N39.0 Urinary tract infection, site not specified; E88.09 Other disorders of plasma-protein metabolism, not elsewhere classified; I11.0 Hypertensive heart disease with heart failure; E87.6 Hypokalemia; B96.20 Unspecified Escherichia coli [E. coli] as the cause of diseases classified elsewhere; Z20.822 Contact with and (suspected) exposure to COVID-19; F41.9 Anxiety disorder, unspecified; M19.90 Unspecified osteoarthritis, unspecified site; E11.9 Type 2 diabetes mellitus without complications; Z87.440 Personal history of urinary (tract) infections; Z87.891 Personal history of nicotine dependence; Z68.36 Body mass index [BMI] 36.0-36.9, adult
CPT/HCPCS: 36415; 71045; 71275; 74176; 80048; 80053; 81001; 83880; 84484; 85025; 85027; 85379; 85610; 85730; 87077; 87086; 87186; 87428; 93005; 93970; 96365; 96375; J0696; J1644; Q9967; U0003; 99285-25

== ENCOUNTER 2021-08-08 09:19 | Observation (INO) | payer MEDICARE ==
[~2021-08-08] VITALS: Ht 175.3 cm; Wt 108.0 kg
[~2021-08-08 09:19] MED LIST changes: +ALLO300T PO; +APIX5TAB3 PO; +CEFD300C PO; +IPRA3AMP29 NEB; +MIRA25TA PO
--- NOTE | 2021-08-08 09:49 | PHYS DOC ---
Past History Past Medical History: Anxiety, Arthritis, CAD, CHF, Diabetes, DVT, Hypertension, Pneumonia, Sciatica, UTI Additional Past Medical Histor: BLOOD CLOTS IN LUNGS 05/02 Past Surgical History: Appendectomy, Cholecystectomy, Hysterectomy Smoking: Non-smoker Alcohol Use: None Drug Use: None General Adult EDM: Chief Complaint: DEHYDRATION HPI: HPI: Patient is a 75-year-old female presents with generalized weakness. Symptoms been present for the last day or 2. The patient's daughter noticed that the patient has been having trouble getting up and going about activities of daily living. She has had trouble getting up and going to the bathroom and has not been eating well or drinking well. Patient has a history of frequent urinary tract infections previously as well as being dehydrated previously and the family is concerned at that something like this is going on now. The patient denies any chest pain, shortness of breath, fever or cough. No nausea, vomiting or abdominal pain. No dysuria. She does complain of some left knee discomfort and trouble with range of motion as well as some swelling in the left hand which is chronic. Review of Systems: Review of Systems: Constitutional: Denies fever Eyes: Denies change in visual acuity or eye pain HENT: Denies sore throat Respiratory: Denies shortness of breath Cardiovascular: Denies chest pain GI: Denies abd pain : Denies dysuria Musculoskeletal: Denies back or extremity injury Integument: Denies rash or skin lesions Neurologic: Denies headache, focal weakness or sensory changes All other systems were reviewed and found to be within normal limits, except as documented in this note. Allergies: Allergies: Allergies Coded Allergies Type Severity Reaction Last Updated Verified No Known Drug Allergies 04/25/21 No Physical Exam: PE: Constitutional: Well developed, well nourished, no acute distress, non-toxic appearance. HENT: Normocephalic, atraumatic, bilateral external ears normal, mucosa moist, nose normal. Eyes: EOMI, conjunctiva normal, no discharge. Neck: Normal range of motion, supple, no stridor, no meningeal signs. Cardiovascular: Regular rate and rhythm Lungs & Thorax: Bilateral breath sounds clear to auscultation Abdomen: Soft, no tenderness or obvious masses Skin: Warm, dry, no erythema, no rash. Extremities: No tenderness, no cyanosis, no clubbing, decreased range of motion left knee secondary to pain, 1-2+ edema bilaterally in the lower extremities. Neurologic: Alert and oriented, normal motor function, normal sensory function, no focal deficits noted. Psychologic: Affect normal, judgement normal, mood normal. Current Patient Data: Vital Signs: Vital Signs Date Time Temp Pulse Resp B/P (MAP) Pulse Ox O2 Delivery O2 Flow Rate FiO2 08/08/21 09:34 97.4 79 139/61 (87) 98 Nasal Cannula 2.0 EKG: EKG: [] Radiology/Procedures: Radiology/Procedures: [] Heart Score: C/O Chest Pain: No Risk Factors: Risk Factors: DM, Current or recent (<one month) smoker, HTN, HLP, family history of CAD, obesity. Risk Scores: Score 0 - 3: 2.5% MACE over next 6 weeks - Discharge Home Score 4 - 6: 20.3% MACE over next 6 weeks - Admit for Clinical Observation Score 7 - 10: 72.7% MACE over next 6 weeks - Early Invasive Strategies Course & Med Decision Making: Course & Med Decision Making Pertinent Labs and Imaging studies reviewed. (See chart for details) This 75-year-old female generalized weakness. On work-up urine is grossly infected. At this time patient has had a urine culture and blood culture ordered. We will treat her with ceftriaxone. I spoke with Dr. Rodrigues who has been kind enough to accept her for hospitalization and further management, patient is in stable condition at this time. Dragon Disclaimer: Dragon Disclaimer: This electronic medical record was generated, in whole or in part, using a voice recognition dictation system. Departure Departure: Impression: Primary Impression: Urinary tract infection Additional Impression: Generalized weakness Disposition: ADMITTED INPATIENT Admitting Physician: Matt Rodrigues Condition: STABLE Referrals: MATT RODRIGUES MD (PCP) BLAS CABA MD Aug 08, 2021 09:49
--- NOTE | 2021-08-08 10:52 | RAD ---
XR KNEE _3 VIEWS_LT DATE: 08/08/2021 9:58 AM INDICATION: weakness COMPARISON: None. FINDINGS: Bones: There is no evidence of acute fracture or dislocation. Joints: Severe medial compartment degenerative changes, mild lateral and patellofemoral compartment degenerative changes There is no joint effusion. Miscellaneous: None. IMPRESSION: Tricompartmental degenerative changes, worst and severe in the medial compartment. Electronically signed by: Vince Moyer MD (08/08/2021 10:50 AM) [id number]
--- NOTE | 2021-08-08 10:54 | RAD ---
XR CHEST 1V INDICATION: Dyspnea. COMPARISON STUDY: 05/30/2021. FINDINGS: Lungs: Low lung volumes. Bibasilar heterogeneous opacities. Pleura: Trace right and small left pleural effusions. Heart and Mediastinum: Cardiomegaly. Atherosclerosis of the thoracic aorta. IMPRESSION: Low lung volume with bibasilar opacities, which may represent subsegmental atelectasis or infectious process. Trace right and small left pleural effusions Electronically signed by: Vince Moyer MD (08/08/2021 10:52 AM) [id number]
--- NOTE | 2021-08-08 11:16 | EKG ---
[address] [address] Test Date: 2021-08-08 Test Time: 10:59:39 Pat Name: TAD JIMENEZ Department: Room: 111 A Gender: F Certified Neurodiagnostic Technologist: SACHI : 1945 Requested By: BLAS CABA Order Number: [id number] Reading MD: Andres Singh MD Measurements Intervals [place] Rate: 79 P: 46 TX: 170 QRS: 65 QRSD: 96 T: 62 QT: 346 QTc: 398 Interpretive Statements SINUS RHYTHM CONSISTENT WITH ANTEROSEPTAL INFARCT PROBABLY OLD Electronically Signed On 08-17-2021 10:00:50 CDT by Andres Singh MD
[2021-08-08 11:17] LABS: BASO % 0 % (0-3); EOS # 0.1 x10^3/uL (0.0-0.7); EOS % 1 % (0-3); HEMATOCRIT 36.2 % (36.0-47.0); HEMOGLOBIN 11.8 g/dL (12.0-15.5); LYMPH # 1.7 x10^3/uL (1.0-4.8); LYMPH % 15 % (24-48); MEAN CORPUSCULAR HEMOGLOBIN 30 pg (25-35); MEAN CORPUSCULAR HGB CONC 33 g/dL (31-37); MEAN CORPUSCULAR VOLUME 92 fL (79-100); MONO # 1.1 x10^3/uL (0.0-1.1); MONO % 9 % (0-9); NEUT # 8.5 x10^3uL (1.8-7.7); NEUT % 75 % (31-73); PLATELET COUNT 162 x10^3/uL (140-400); RED BLOOD COUNT 3.94 x10^6/uL (3.50-5.40); RED CELL DISTRIBUTION WIDTH 17.3 % (11.5-14.5); WHITE BLOOD COUNT 11.4 x10^3/uL (4.0-11.0)
[2021-08-08 11:29] LABS: CALCIUM 9.6 mg/dL (8.5-10.1); GFR 65.6; POTASSIUM 4.4 mmol/L (3.5-5.1)
[2021-08-08 11:42] LABS: ALBUMIN 2.5 g/dL (3.4-5.0); ALBUMIN/GLOBULIN RATIO 0.6 (1.0-1.7); MAGNESIUM 1.6 mg/dL (1.8-2.4); TOTAL BILIRUBIN 0.7 mg/dL (0.2-1.0); TOTAL PROTEIN 6.6 g/dL (6.4-8.2)
[2021-08-08 14:28] LABS: CLARITY,URINE TURBID; COLOR,URINE YELLOW; GLUCOSE,URINE NEG (NEG); NITRITE,URINE POS (NEG); UROBILINOGEN,URINE 0.2 mg/dL (0.2 mg/dL)
[2021-08-08 14:29] LABS: BACTERIA,URINE MANY /HPF (0-FEW); SQUAMOUS EPITHELIAL CELL,UR OCC /LPF; WBC,URINE >40 /HPF (0-4)
[2021-08-08 15:15] LABS: INFLUENZA A PATIENT NEGATIVE (NEGATIVE); INFLUENZA B PATIENT NEGATIVE (NEGATIVE)
[2021-08-08] MEDS ORDERED: cefTRIAXone SODIUM 1 GM VIAL ONE (16:05)
[2021-08-08] MEDS ORDERED: IV NORMAL SALINE 50ML 50 ML ONE (16:05)
[2021-08-08 17:00] VITALS: BP 162/76
[2021-08-08 19:10] VITALS: BP 147/78
[2021-08-08] MEDS ORDERED: HYDROcodone/APAP 5/325MG 1 TAB TABLET PO PRN (19:15)
[2021-08-08] MEDS ORDERED: ALBUTEROL SULFATE 2.5 MG/3 ML NEBU. NEB PRN (19:30)
[2021-08-08] MEDS: IPRATRPIUM/ALBUTEROL 0.5/2.5MG 3 ML NEBU. NEB SCH (20:12)
[2021-08-08] MEDS: APIXABAN 5 MG TABLET. PO SCH (20:56)
[2021-08-08] MEDS: CYCLOBENZAPRINE 10 MG TABLET. PO SCH (20:56)
[2021-08-08] MEDS: CIPROFLOXACIN HCL 500 MG TABLET PO SCH (20:56)
[2021-08-08] MEDS: CARVEDILOL 12.5 MG TABLET PO SCH (20:56)
[2021-08-08] MEDS: metFORMIN 500 MG TABLET PO SCH (20:57)
[2021-08-08 22:11] VITALS: BP 149/84
[2021-08-09] MEDS: IPRATRPIUM/ALBUTEROL 0.5/2.5MG 3 ML NEBU. NEB SCH ×4 (05:52→19:49)
[2021-08-09 06:34] VITALS: BP 157/93
[2021-08-09] MEDS: CARVEDILOL 12.5 MG TABLET PO SCH ×3 (08:47→21:48)
[2021-08-09] MEDS: metFORMIN 500 MG TABLET PO SCH ×2 (08:47→17:27)
[2021-08-09] MEDS: APIXABAN 5 MG TABLET. PO SCH ×2 (08:48→21:48)
[2021-08-09] MEDS: CYCLOBENZAPRINE 10 MG TABLET. PO SCH ×2 (08:48→21:51)
[2021-08-09] MEDS: CIPROFLOXACIN HCL 500 MG TABLET PO SCH ×2 (08:48→21:49)
[2021-08-09] MEDS: LACTOBACILLUS RHAMNOSUS GG 1 CAPSULE. PO SCH ×2 (08:48→19:46)
[2021-08-09] MEDS: ATORVASTATIN CALCIUM 20 MG TABLET PO SCH (08:48)
[2021-08-09] MEDS: amLODIPine BESYLATE 10 MG TABLET PO SCH (08:49)
[2021-08-09] MEDS: LISINOPRIL 20 MG TABLET PO SCH (08:49)
[2021-08-09] MEDS: ALLOPURINOL 300 MG TABLET. PO SCH (08:53)
[2021-08-09] MEDS: DOXAZOSIN MESYLATE 4 MG TABLET PO SCH (08:54)
[2021-08-09] MEDS: MIRABEGRON 25 MG TAB.ER.24H PO SCH (10:51)
[2021-08-09 11:10] VITALS: BP 119/69
--- NOTE | 2021-08-09 15:22 | HP ---
DATE OF SERVICE: 08/09/2021 ADMIT DATE: 08/08/2021 HISTORY OF PRESENT ILLNESS: A 75-year-old female came in with generalized weakness for the last 2 days. The patient has been having trouble getting up and getting out activity. She has had trouble getting out of bed, going to the bathroom, frequent urinations. The patient became increasingly dehydrated, concerned, came in through the Emergency Room, found to have what appeared to be a pyelonephritis, possibly secondary giving her generalized weakness. The patient was admitted for further evaluation, IV antibiotic therapy as she had failed outpatient antibiotic therapy. The patient does also have possible trace pleural effusion. PAST MEDICAL HISTORY: Congestive heart failure, pulmonary emboli, oxygen administration, cholecystectomy, multiple urinary tract infections, incontinence, musculoskeletal disorders, arthritis, influenza vaccines up to date. ALLERGIES: No known allergies. MEDICATIONS: The patient's home medications include that of cefdinir 300 mg b.i.d., ipratropium bromide, albuterol, Flexeril, Eliquis 5 mg b.i.d., Lipitor 40, doxazosin 4 mg, carvedilol 25 b.i.d., amlodipine 10 mg, lisinopril 40 mg, hydrocodone, metformin 500 b.i.d., Myrbetriq 25 mg at bedtime and allopurinol 300 mg for her gout. SOCIAL HISTORY: No smoking, alcohol or drug use. FAMILY HISTORY: Positive for diabetes and hypertension. REVIEW OF SYSTEMS: The patient presently denies any headaches, visual change, blurred vision, double vision. Denies any melena, hematochezia, hematemesis. Neurologically baseline, does have problems with pain and discomfort on urination and generalized weakness in her legs when she stands up, she has problems with that. The patient otherwise continued to be monitored on that. PHYSICAL EXAMINATION: GENERAL: The patient on exam is a very pleasant female, looking fairly weak, but no obvious abnormality. VITAL SIGNS: The patient on 2 liters at 92%, blood pressure 162/76, respiratory rate 18, pulse 80. Presently afebrile. HEENT: The patient's head was atraumatic, normocephalic. Eyes: PERRLA without jaundice. The mouth and throat, poor dentition. NECK: Supple, without JVD or thyromegaly. LUNGS: Diminished, poor movement of air. CARDIOVASCULAR: Regular sinus rhythm, S1, S2, without murmur, rub, thrill, or extra heart sounds. ABDOMEN: Soft, nontender, no rebounding or guarding. Positive bowel sounds, mild flank tenderness. EXTREMITIES: No clubbing, cyanosis. Trace edema was noted. NEUROLOGIC: Speech fluent, spontaneous, appropriate. Cranial nerves 2-12 grossly intact. LABORATORY DATA: The patient's labs show white count of almost 12, hemoglobin 11 and 36, normal differential. Sugars are being monitored. Sodium and potassium 140, 4.4, 18, and 1, 137 on the sugar, 2.5 ____. Serology negative for COVID. IMPRESSION: Pyelonephritis, severe protein malnutrition, type 2 diabetes, generalized weakness, essential hypertension, mild pleural effusion. The patient continued to be monitored carefully, make further evaluation. Continue on IV antibiotic therapy and continue to make adjustments on such until cultures come back. SHWETA/ISMAEL DR: Jermaine TID: [id number]
[2021-08-09 15:52] VITALS: BP 114/68
[2021-08-09 19:10] VITALS: BP 117/77
[2021-08-10 04:26] VITALS: BP 124/82
[2021-08-10] MEDS: IPRATRPIUM/ALBUTEROL 0.5/2.5MG 3 ML NEBU. NEB SCH (05:25)
[2021-08-10] MEDS ORDERED: CIPR500T94 PO (08:28)
[2021-08-10] MEDS: metFORMIN 500 MG TABLET PO SCH (08:44)
[2021-08-10] MEDS: LACTOBACILLUS RHAMNOSUS GG 1 CAPSULE. PO SCH (08:44)
[2021-08-10] MEDS: APIXABAN 5 MG TABLET. PO SCH (08:44)
[2021-08-10] MEDS: DOXAZOSIN MESYLATE 4 MG TABLET PO SCH (08:44)
[2021-08-10] MEDS: CIPROFLOXACIN HCL 500 MG TABLET PO SCH (08:45)
[2021-08-10] MEDS: ATORVASTATIN CALCIUM 20 MG TABLET PO SCH (08:45)
[2021-08-10] MEDS: ALLOPURINOL 300 MG TABLET. PO SCH (08:45)
[2021-08-10] MEDS: amLODIPine BESYLATE 10 MG TABLET PO SCH (08:45)
[2021-08-10 08:46] VITALS: BP 124/82
[2021-08-10] MEDS: LISINOPRIL 20 MG TABLET PO SCH (08:46)
[2021-08-10] MEDS: CYCLOBENZAPRINE 10 MG TABLET. PO SCH (08:51)
--- NOTE | 2021-08-10 09:15 | DISCH ---
HOME HEALTH DISCHARGE/MEDS DISCHARGE INFORMATION: Discharge Date: August 10, 2021 Final Diagnosis: Problems Medical Problems: (1) Generalized weakness Status: Acute (2) Urinary tract infection Status: Acute Condition on Discharge: Stable CODE STATUS: Code Status: Full HOME HEALTH: Face to Face: I certify this patient is under my care and that I, or a nurse practitioner or physician's construction management assistant working with me, had a face to face encounter that meets the physician face to face encounter requirements with this patient on August 10, 2021. Medical Condition(s): DM, HTN Assisted For: Assess Cardiopulm Status, Assess & Educate Safety, Assess/Skilled Observatio, Medication Management Physical Therapy For: Evalulation/Treatment Occupational Therapy For: Evaluation/Treatment Homebound Status Met By: Unsteady balance w/ amb,, Extreme weakness w/ amb. POST DISCHARGE ORDERS: Activity Instructions for Disc: Activity as tolerated Weight Bearing Status after Di: No restrictions DIET AFTER DISCHARGE: ADA CHECKS AFTER DISCHARGE: Checks after discharge: Check blood sugar, ac/hs CERTIFICATION STATEMENT: Certification Statement: Based on the above finding, I certify that this patient is confined to the home and needs intermittent halfway care, physical therapy and/or speech therapy, or continues to need occupational therapy.~ This patient is under my care, and I have initiated the establishment of the plan of care.~ This patient will be followed by myself or a community physician who will periodically review the plan of care. DISCHARGE MEDICATIONS: Home Meds Active Scripts Ciprofloxacin Hcl (CIPRO) 500 Mg Tablet, 500 MG PO BID for uti for 7 Days, #14 TAB Prov:NATASHA HOPSON MD 08/10/21 Apixaban (ELIQUIS) 5 Mg Tablet, 5 MG PO BID94 for PE's for 30 Days, #60 TAB 5 Refills Prov:NATASHA HOPSON MD 05/29/21 Ipratropium/Albuterol Sulfate (DUONEB 0.5-3(2.5) MG/3 ML) 3 Ml Ampul.neb, 3 ML NEB RTQID for acute respiratory failure for 90 Days, #360 EACH Prov:NATASHA HOPSON MD 05/29/21 Hydrocodone Bit/Acetaminophen (HYDROCODONE-APAP 5-325 ) 1 Each Tablet, 1 TAB PO PRN Q6HRS PRN for PAIN for 7 Days, TAB 14 Refills Prov:NATASHA HOPSON MD 10/16/20 Reported Medications Mirabegron (MYRBETRIQ) 25 Mg Tab.er.24h, 25 MG PO DAILY for OVERACTIVE BLADDER, TAB.SR 05/26/21 Allopurinol (ALLOPURINOL) 300 Mg Tablet, 1 TAB PO DAILY for gout, #30 TAB 5 Refills 05/26/21 Doxazosin Mesylate (DOXAZOSIN MESYLATE) 4 Mg Tablet, 1 TAB PO DAILY for ., #30 TAB 5 Refills 10/14/20 Metformin Hcl (METFORMIN HCL) 500 Mg Tablet, 1 TAB PO BID for ., #60 TAB 3 Refills 10/14/20 Carvedilol (COREG) 25 Mg Tablet, 25 MG PO BIDWMEALS for CARDIAC, TAB 10/14/20 Amlodipine Besylate (AMLODIPINE BESYLATE) 10 Mg Tablet, 1 TAB PO DAILY for ., #30 TAB 5 Refills 10/14/20 Albuterol Sulfate (PROAIR HFA INHALER) 8.5 Gm Hfa.aer.ad, 2 PUFF IH PRN Q4-6HRS PRN for wheezing for 21 Days, #1 INHALER 0 Refills 10/14/20 Lisinopril (LISINOPRIL) 40 Mg Tablet, 1 TAB PO DAILY for ., #30 TAB 5 Refills 10/14/20 Atorvastatin Calcium (ATORVASTATIN CALCIUM) 40 Mg Tablet, 1 TAB PO DAILY for ., #30 TAB 5 Refills 10/14/20 Cyclobenzaprine Hcl (CYCLOBENZAPRINE HCL) 10 Mg Tablet, 1 TAB PO BID for ., #30 TAB 10/14/20 Discontinued Scripts Cefdinir (CEFDINIR) 300 Mg Capsule, 300 MG PO BID for pneumonia for 10 Days, #20 CAP Prov:NATASHA HOPSON MD 05/29/21 NATASHA HOPSON MD August 10, 2021 09:15
[2021-08-10] MEDS: MIRABEGRON 25 MG TAB.ER.24H PO SCH (09:23)
--- NOTE | 2021-08-10 16:11 | DS ---
DATE OF DISCHARGE: 08/10/2021 HOSPITAL COURSE: A 75-year-old -[place] female who came in with generalized weakness and difficulty in walking. The patient was having trouble with generalized weakness, found that she had pyelonephritis and as a result of this, was placed on IV antibiotic therapy despite the fact that she had been on oral antibiotics as an outpatient and failed. The patient was brought into the Emergency Room where she was evaluated. Her magnesium was a little bit on the low side and the patient otherwise continued to be monitored carefully. She was given IV antibiotic therapy. Final cultures are still pending on the urine; however, the patient made excellent progress and she was ready to be discharged home. The patient's CBC did show a slight decrease in her hemoglobin 11.8 and 36. Otherwise, basically unremarkable. The patient's chemistries 141, 4.4, glucose 137. Magnesium slightly low at 1.6. Albumin was extremely low at 2.5. The patient had greater than 40 white blood cells per high power field, negative for COVID. IMPRESSION: Therefore, pyelonephritis, generalized weakness and near syncope, history of diabetes, essential hypertension, history of emphysema, chronic oxygen care. Continue on oral antibiotics as an outpatient. See MRad. Diabetic diet, decreased activity and continue to monitor the patient as an outpatient. RENETTA/SYLVAIN DR: RENETTA/robin TID: [id number]
== END 2021-08-10 09:45 | disposition home health service (06) ==
LOC: ER 09:19 → INTOOBSV 15:11 → ER HOLD 15:11 → 1 SOUTH 16:41
PROVIDERS: ADMIT Family Medicine; ATTEND Family Medicine
DX: N12 Tubulo-interstitial nephritis, not specified as acute or chronic (principal); Z20.822 Contact with and (suspected) exposure to COVID-19; E43 Unspecified severe protein-calorie malnutrition; E11.9 Type 2 diabetes mellitus without complications; E86.0 Dehydration; I11.0 Hypertensive heart disease with heart failure; I50.9 Heart failure, unspecified; I25.10 Atherosclerotic heart disease of native coronary artery without angina pectoris; J90 Pleural effusion, not elsewhere classified; N39.0 Urinary tract infection, site not specified; M19.90 Unspecified osteoarthritis, unspecified site; F41.9 Anxiety disorder, unspecified; R53.1 Weakness; J43.9 Emphysema, unspecified; Z86.711 Personal history of pulmonary embolism; Z90.49 Acquired absence of other specified parts of digestive tract; Z90.710 Acquired absence of both cervix and uterus; Z79.899 Other long term (current) drug therapy; Z98.890 Other specified postprocedural states
CPT/HCPCS: 36415; 71045; 73562; 80053; 81001; 82947; 83605; 83735; 83880; 84484; 85025; 87040; 87077; 87086; 87186; 87428; 93005; 94640; 96365; 99285; G0378; J0696; U0003; G0379